=== PATIENT | male | born 1945 ===

== ENCOUNTER 2018-01-02 20:45 | Inpatient (IN) | payer MEDICARE, MEDICAID ==
[~2018-01-02 20:45] MED LIST: ETOMIDATE 20 MG INJ; MIDAZOLAM 1 MG/ML 2 ML INJ; SUCCINYLCHOLINE CHLORIDE 100 MG/5 ML SYG IV
[2018-01-02 21:05] LABS: ADD MAN DIFF? NO
[2018-01-02 21:13] LABS: WHITE BLOOD COUNT 3.1 10^3/ul (4.8-10.8)
[2018-01-02 21:13] LABS: ABNORMAL IP MESSAGE 1; BASOPHILS % 0.6 % (0.0-2.0); EOSINOPHILS % 0.3 % (0.0-7.0); HEMATOCRIT 33.9 % (42.0-52.0); HEMOGLOBIN 9.9 g/dl (14.0-18.0); LYMPHOCYTES # 1.1 10^3/ul (0.8-2.9); LYMPHOCYTES % 35.4 % (15.0-51.0); MEAN CORPUSCULAR HEMOGLOBIN 35.2 pg (29.0-33.0); MEAN CORPUSCULAR HGB CONC 29.2 g/dl (32.0-37.0); MEAN CORPUSCULAR VOLUME 120.6 fl (82.0-101.0); MEAN PLATELET VOLUME 11.4 fl (7.4-10.4); MONOCYTE # 0.3 10^3/ul (0.3-0.9); MONOCYTES % 10.4 % (0.0-11.0); NEUTROPHIL # 1.6 10^3/ul (1.6-7.5); NEUTROPHILS % 51.7 % (39.0-77.0); NUCLEATED RED BLOOD CELLS # 0.1 10^3/ul (0.0-0.0); NUCLEATED RED BLOOD CELLS% 2.6 /100WBC (0.0-0.0); PLATELET COUNT 86 10^3/UL (140-415); POSITIVE DIFF @See below; RED BLOOD COUNT 2.81 10^6/ul (4.70-6.10)
[2018-01-02 21:29] LABS: INR 1.85; PROTIME 21.8 Sec (11.9-14.9); PT RATIO 1.7
[2018-01-02 21:36] LABS: PARTIAL THROMBOPLASTIN TIME 82.6 Sec (23.0-35.0)
[2018-01-02 21:37] LABS: SALICYLATE < 1.0 mg/dl (5.0-30.0)
[2018-01-02 21:37] LABS: ACETAMINOPHEN < 10.0 ug/ml (10.0-30.0)
[2018-01-02 21:49] LABS: CREATINE KINASE 1362 IU/L (23-200)
[2018-01-02 21:51] LABS: ANION GAP 45 (5-13); BLOOD UREA NITROGEN 16 mg/dl (7-20); CALCIUM 7.7 mg/dl (8.4-10.2); CHLORIDE 89 mmol/L (97-110); GLUCOSE 192 mg/dl (70-220); POTASSIUM 4.1 mmol/L (3.5-5.1); SODIUM 139 mmol/L (135-144)
[2018-01-02 21:54] LABS: CARBON DIOXIDE 5 mmol/L (21-31)
[2018-01-02 21:57] LABS: CREATININE 1.84 mg/dl (0.61-1.24); Estimated GFR 37 mL/min (>60)
[2018-01-02 21:59] LABS: ANISOCYTOSIS 2+ (0-0); BAND NEUTROPHILS #M 0.1 10^3/ul (0.0-0.6); BAND NEUTROPHILS % (M) 4 % (0-4); ERYTHROBLAST% (NRBC) (M) 5 % (0-0); HYPOCHROMASIA 1+ (0-0); LYMPHOCYTES #M 1.3 10^3/ul (0.8-2.9); LYMPHOCYTES % (M) 42 % (15-51); MONOCYTE #M 0.1 10^3/ul (0.3-0.9); MONOCYTES % (M) 6 % (0-11); MYELOCYTES % (M) 1 % (0-0); PLATELET ESTIMATE DECREASED; POLYCHROMASIA 1+ (0-0); SEG NEUT #M 1.5 10^3/ul (1.6-7.5); SEGMENTED NEUTROPHILS (M) % 47 % (39-77); SMUDGE%M 70 % (0-0)
[2018-01-02 22:02] LABS: TROPONIN-I 0.065 ng/ml (0.000-0.120)
[2018-01-02] MEDS: MIDAZOLAM 1 MG/ML 5 ML INJ IV (22:26)
[2018-01-02] MEDS: ETOMIDATE 20 MG INJ IV (22:27)
[2018-01-02] MEDS: SODIUM CHLORIDE 0.9% 1L BAG IV* (22:27)
[2018-01-02] MEDS: SUCCINYLCHOLINE CHLORIDE 100 MG/5 ML SYG IV (22:28)
[2018-01-02] MEDS ORDERED: ACETAMINOPHEN 650 MG SUPP PR (22:30)
[2018-01-02] MEDS ORDERED: ALBUTEROL HFA 8 GM INHALER INH (22:30)
[2018-01-02] MEDS ORDERED: ONDANSETRON 4 MG INJ IV (22:30)
[2018-01-02] MEDS: MIDAZOLAM 1 MG/ML 2 ML INJ IV (22:30)
[2018-01-02] MEDS ORDERED: VANCOMYCIN IV PER PHARMACY XX (22:30)
[2018-01-02] MEDS ORDERED: IPRATROPIUM (HFA) 12.9 GM INHALER INH (22:30)
[2018-01-02 22:51] LABS: HEMOGLOBIN A1C 4.7 % (0-5.9)
[2018-01-02] MEDS: CEFTRIAXONE 1 GM/50 ML (PMX) 50 ML IVPB (22:56)
[2018-01-02 23:05] LABS: AMPHETAMINE/METHAMPHETAMINE Negative (NEGATIVE); BARBITURATES Negative (NEGATIVE); BENZODIAZEPINES Negative (NEGATIVE); CANNABINOIDS Negative (NEGATIVE); COCAINE Negative (NEGATIVE); OPIATES Negative (NEGATIVE)
[2018-01-02] MEDS: SODIUM BICARBONATE (IV ADD) 150 MEQ in DEXTROSE 5% 1,000 ML IV (23:13)
[2018-01-03] MEDS: MIDAZOLAM (DRIP) 50 mg/50 mL 50 ML IV ×2 (00:50→15:42)
[2018-01-03] MEDS: SOD CHLORIDE 0.9% 1,000 ML IV ×5 (00:50→07:04)
[2018-01-03 01:26] LABS: AADO2 Arterial 64.6 mmHg (7.0-24.0); Allen Test ACCEPTAB; Arterial Blood Gas Oxygen Sat 99.4 mmHG (95.0-98.0); Arterial COHb 0.3 % (0.0-3.0); Arterial Fraction of Oxyhgb 98.3 % (93.0-99.0); Arterial HCO3 2.1 mmol/L (22.0-26.0); Arterial MetHb 0.8 % (0.0-1.5); Arterial Total Hemglobin 10.9 g/dl (12.0-18.0); Arterial pCO2 27.2 mmhg (35-45); MODE VENT - AC; Site Right Radial
[2018-01-03 01:36] LABS: LACTIC ACID > 24.0 mmol/L (0.5-2.0)
[2018-01-03] MEDS ORDERED: NA BICARBONATE 8.4% 50 ML SYG (01:43)
[2018-01-03] MEDS ORDERED: DEXTROSE 50% 50 ML SYRINGE IV ×2 (02:00)
[2018-01-03] MEDS: VANCOMYCIN 1 GM in 250 ML IVPB (02:19)
[2018-01-03] MEDS: ACCU-CHEK XX ×22 (02:24→23:09)
[2018-01-03] MEDS: NA BICARBONATE 8.4% 50 ML SYG IV (02:24)
[2018-01-03 02:54] LABS: Allen Test ACCEPTAB; Arterial Blood Gas Oxygen Sat 99.2 mmHG (95.0-98.0); Arterial COHb 0.3 % (0.0-3.0); Arterial Fraction of Oxyhgb 98.2 % (93.0-99.0); Arterial HCO3 4.4 mmol/L (22.0-26.0); Arterial MetHb 0.7 % (0.0-1.5); Arterial Total Hemglobin 9.8 g/dl (12.0-18.0); Arterial pCO2 29.8 mmhg (35-45); MODE VENT - AC; Site Right Radial
[2018-01-03] MEDS: INSULIN HUMAN REGULAR 100 UNIT in SOD CHLORIDE 0.9% 99 ML IV ×4 (03:14→19:34)
[2018-01-03] MEDS ORDERED: PHENYLephrine 20MG IN 250 ML 250 ML (03:24)
[2018-01-03] MEDS: PHENYLephrine 20MG IN 250 ML 250 ML IV (03:28)
[2018-01-03] MEDS: DIGOXIN 500 MCG INJ IV (04:24)
[2018-01-03] MEDS ORDERED: SODIUM BICARBONATE IV (05:00)
[2018-01-03] MEDS ORDERED: DEXTROSE 5% IV (05:00)
[2018-01-03] MEDS: SODIUM BICARBONATE (IV ADD) 150 MEQ in DEXTROSE 5% 1,000 ML IV ×2 (05:08→10:46)
[2018-01-03 05:09] LABS: ABNORMAL IP MESSAGE 1; HEMATOCRIT 30.1 % (42.0-52.0); HEMOGLOBIN 9.2 g/dl (14.0-18.0); MEAN CORPUSCULAR HEMOGLOBIN 34.8 pg (29.0-33.0); MEAN CORPUSCULAR HGB CONC 30.6 g/dl (32.0-37.0); NUCLEATED RED BLOOD CELLS% 2.9 /100WBC (0.0-0.0); PLATELET COUNT 71 10^3/UL (140-415); POSITIVE DIFF @See below; RED BLOOD COUNT 2.64 10^6/ul (4.70-6.10); RED CELL DISTRIBUTION WIDTH 16.1 % (11.5-14.5)
[2018-01-03 05:09] LABS: WHITE BLOOD COUNT 5.5 10^3/ul (4.8-10.8)
[2018-01-03 05:25] LABS: INR 3.02; PROTIME 32.2 Sec (11.9-14.9); PT RATIO 2.5
[2018-01-03 05:31] LABS: BLOOD UREA NITROGEN 16 mg/dl (7-20); CHLORIDE 95 mmol/L (97-110); GLUCOSE 287 mg/dl (70-220); POTASSIUM 5.3 mmol/L (3.5-5.1); SODIUM 142 mmol/L (135-144)
[2018-01-03 05:33] LABS: ADD MAN DIFF? YES
[2018-01-03 05:37] LABS: PARTIAL THROMBOPLASTIN TIME 109.1 Sec (23.0-35.0)
[2018-01-03 05:42] LABS: Estimated GFR 40 mL/min (>60)
[2018-01-03] MEDS: PHENYLephrine 40 MG in SOD CHLORIDE 0.9% 496 ML IV ×4 (05:50→19:35)
[2018-01-03] MEDS ORDERED: PANTOPRAZOLE 40 MG INJ IV (06:00)
[2018-01-03] MEDS: NORepinephrine 8MG/250 ML (PMX 250 ML IV ×2 (06:04)
[2018-01-03 06:15] LABS: ANION GAP 42 (5-13)
[2018-01-03 06:17] LABS: CALCIUM 5.5 mg/dl (8.4-10.2); CARBON DIOXIDE < 5 mmol/L (21-31)
[2018-01-03 06:22] LABS: LACTIC ACID > 24.0 mmol/L (0.5-2.0)
[2018-01-03] MEDS ORDERED: DOPamine-D5W 1.6 MG/ML 250 ML IV (07:00)
[2018-01-03 07:18] LABS: DIGOXIN 3.5 ng/ml (1.0-2.0)
[2018-01-03 07:19] LABS: ANISOCYTOSIS 2+ (0-0); BAND NEUTROPHILS #M 1.8 10^3/ul (0.0-0.6); BAND NEUTROPHILS % (M) 34 % (0-4); ERYTHROBLAST% (NRBC) (M) 3 % (0-0); GIANT THROMBO% (M) 2 % (0-0); LYMPHOCYTES #M 0.4 10^3/ul (0.8-2.9); LYMPHOCYTES % (M) 9 % (15-51); PLATELET ESTIMATE DECREASED; POIKILOCYTOSIS 1+ (0-0); POLYCHROMASIA 1+ (0-0); REACTIVE LYMPHOCYTES #M 0.1 10^3/ul (0.0-0.0); REACTIVE LYMPHOCYTES% (M) 3 % (0-0); SEG NEUT #M 3.1 10^3/ul (1.6-7.5); SEGMENTED NEUTROPHILS (M) % 54 % (39-77); SMUDGE%M 24 % (0-0)
[2018-01-03 07:26] LABS: TROPONIN-I 0.279 ng/ml (0.000-0.120)
[2018-01-03] MEDS: VASOPRESSIN 60 UNIT in DEXTROSE 5% 57 ML IV ×2 (07:48→18:40)
[2018-01-03] MEDS: HYDROCORTISONE 100 MG INJ IV ×2 (07:49→14:00)
[2018-01-03 07:52] LABS: AADO2 Arterial 309.4 mmHg (7.0-24.0); Allen Test ACCEPTAB; Arterial Base Excess -13.7 mmol/L (-3.0-3); Arterial Blood Gas Oxygen Sat 95.8 mmHG (95.0-98.0); Arterial COHb 0.3 % (0.0-3.0); Arterial HCO3 12.3 mmol/L (22.0-26.0); Arterial MetHb 0.5 % (0.0-1.5); Arterial Total Hemglobin 9.4 g/dl (12.0-18.0); Arterial pCO2 28.9 mmhg (35-45); MODE VENT - AC; Site Right Radial
[2018-01-03] MEDS ORDERED: PHENYLephrine 40 MG in SOD CHLORIDE 0.9% 496 ML IV (08:00)
[2018-01-03 08:27] LABS: CK INDEX 0.9; CREATINE KINASE 5128 IU/L (23-200)
[2018-01-03] MEDS: CEFEPIME 1GM/50 ML (PMX) 50 ML IVPB (09:12)
[2018-01-03] MEDS: PHYTONADIONE 10 MG in DEXTROSE 5% 50 ML IVPB (09:12)
[2018-01-03] MEDS: MULTIVITAMINS 10 ML, THIAMINE 100 MG, FOLIC ACID 1 MG in SOD CHLORIDE 0.9% 1,000 ML IVPB (09:13)
[2018-01-03 09:52] LABS: IMMEDIATE SPIN CROSSMATCH 1 1
[2018-01-03 10:21] LABS: OCCULT BLOOD STOOL POSITIVE (NEGATIVE)
[2018-01-03 12:32] LABS: Allen Test ACCEPTAB; Arterial Base Excess -11.6 mmol/L (-3.0-3); Arterial Blood Gas Oxygen Sat 95.1 mmHG (95.0-98.0); Arterial COHb 0.3 % (0.0-3.0); Arterial Fraction of Oxyhgb 94.2 % (93.0-99.0); Arterial HCO3 13.8 mmol/L (22.0-26.0); Arterial MetHb 0.6 % (0.0-1.5); Arterial Total Hemglobin 8.5 g/dl (12.0-18.0); Arterial pCO2 29.6 mmhg (35-45); MODE VENT - AC; Site Right Radial
[2018-01-03] MEDS ORDERED: DIGOXIN 500 MCG INJ IV (13:00)
[2018-01-03 13:22] LABS: WHITE BLOOD COUNT 2.9 10^3/ul (4.8-10.8)
[2018-01-03 13:22] LABS: ABNORMAL IP MESSAGE 1; HEMATOCRIT 23.2 % (42.0-52.0); HEMOGLOBIN 7.6 g/dl (14.0-18.0); MEAN CORPUSCULAR HEMOGLOBIN 35.5 pg (29.0-33.0); MEAN CORPUSCULAR HGB CONC 32.8 g/dl (32.0-37.0); MEAN CORPUSCULAR VOLUME 108.4 fl (82.0-101.0); MEAN PLATELET VOLUME 10.5 fl (7.4-10.4); NUCLEATED RED BLOOD CELLS% 5.2 /100WBC (0.0-0.0); PLATELET COUNT 40 10^3/UL (140-415); POSITIVE DIFF @See below; RED BLOOD COUNT 2.14 10^6/ul (4.70-6.10); RED CELL DISTRIBUTION WIDTH 15.8 % (11.5-14.5)
[2018-01-03 13:28] LABS: ADD MAN DIFF? YES
[2018-01-03] MEDS: FENTAnyl (DRIP) 1000 mcg/100mL 100 ML IV (13:34)
[2018-01-03 14:46] LABS: LACTIC ACID 23.9 mmol/L (0.5-2.0)
[2018-01-03 14:47] LABS: ANISOCYTOSIS 1+ (0-0); BAND NEUTROPHILS #M 0.2 10^3/ul (0.0-0.6); BAND NEUTROPHILS % (M) 9 % (0-4); ERYTHROBLAST% (NRBC) (M) 13 % (0-0); GIANT THROMBO% (M) 6 % (0-0); LYMPHOCYTES #M 0.1 10^3/ul (0.8-2.9); LYMPHOCYTES % (M) 5 % (15-51); METAMYELOCYTES %M 1 % (0-0); MONOCYTES % (M) 2 % (0-11); PLATELET ESTIMATE SIG DECREASED; REACTIVE LYMPHOCYTES% (M) 1 % (0-0); SEG NEUT #M 2.4 10^3/ul (1.6-7.5); SEGMENTED NEUTROPHILS (M) % 82 % (39-77); SMUDGE%M 43 % (0-0); STOMATOCYTES 1+ (0-0); TARGET CELLS 1+ (0-0); TROPONIN-I 0.612 ng/ml (0.000-0.120)
[2018-01-03 14:49] LABS: ALANINE AMINOTRANSFERASE 264 IU/L (13-69); ALBUMIN/GLOBULIN RATIO 1.05; ALKALINE PHOSPHATASE 69 IU/L (42-121); ANION GAP 26 (5-13); BILIRUBIN,INDIRECT 0.7 mg/dl (0-1.1); BILIRUBIN,TOTAL 2.5 mg/dl (0.2-1.3); BLOOD UREA NITROGEN 19 mg/dl (7-20); CARBON DIOXIDE 14 mmol/L (21-31); CHLORIDE 99 mmol/L (97-110); CREATININE 2.02 mg/dl (0.61-1.24); Estimated GFR 33 mL/min (>60); GLUCOSE 382 mg/dl (70-220); SODIUM 139 mmol/L (135-144); TOTAL PROTEIN 3.9 g/dl (6.1-8.1)
[2018-01-03 14:55] LABS: POTASSIUM 2.6 mmol/L (3.5-5.1)
[2018-01-03 14:56] LABS: CALCIUM 4.8 mg/dl (8.4-10.2)
[2018-01-03] MEDS: POTASSIUM CHLORIDE 50 ML IVPB ×7 (15:00→23:03)
[2018-01-03 15:49] LABS: ASPARTATE AMINO TRANSFERASE 2507 IU/L (15-46)
[2018-01-03 16:23] LABS: CK INDEX 0.9; CREATINE KINASE 5959 IU/L (23-200)
[2018-01-03] MEDS: SODIUM BICARBONATE (IV ADD) 150 MEQ in SOD CHLORIDE 0.45% 1,000 ML IV (16:24)
[2018-01-03] MEDS: [UNRECOGNIZED DRUG - REMARK] XX (17:45)
[2018-01-03] MEDS: PANTOPRAZOLE 40 MG INJ IV (18:38)
[2018-01-03 19:02] LABS: HEMOGLOBIN 7.7 g/dl (14.0-18.0)
[2018-01-03 19:50] LABS: ANION GAP 27 (5-13); BLOOD UREA NITROGEN 21 mg/dl (7-20); CARBON DIOXIDE 16 mmol/L (21-31); CHLORIDE 97 mmol/L (97-110); Estimated GFR 35 mL/min (>60); GLUCOSE 306 mg/dl (70-220); SODIUM 140 mmol/L (135-144)
[2018-01-03] MEDS ORDERED: VANCOMYCIN IV PER PHARMACY XX (20:00)
[2018-01-03 20:11] LABS: CALCIUM 4.9 mg/dl (8.4-10.2); POTASSIUM 2.7 mmol/L (3.5-5.1)
[2018-01-03] MEDS: POTASSIUM CHLORIDE 100 ML IVPB (20:35)
[2018-01-03] MEDS ORDERED: MAGNESIUM SULFATE 6 GM in DEXTROSE 5% 100 ML IVPB (23:00)
[2018-01-04] MEDS: ACCU-CHEK XX ×24 (00:27→22:30)
[2018-01-04 00:49] LABS: HEMATOCRIT 24.7 % (42.0-52.0); HEMOGLOBIN 8.2 g/dl (14.0-18.0)
[2018-01-04] MEDS: SODIUM BICARBONATE (IV ADD) 150 MEQ in SOD CHLORIDE 0.45% 1,000 ML IV ×2 (00:53→07:59)
[2018-01-04] MEDS: CALCIUM GLUCONATE 10% 2 GM in DEXTROSE 5% 100 ML IVPB (00:53)
[2018-01-04] MEDS: MIDAZOLAM (DRIP) 50 mg/50 mL 50 ML IV ×2 (01:03→13:51)
[2018-01-04] MEDS: VANCOMYCIN 500MG/NS (PMX) 100 ML IVPB (01:48)
[2018-01-04 02:04] LABS: ADD UMIC YES; UR ASCORBIC ACID NEGATIVE (NEGATIVE); UR BACTERIA FEW /HPF (NONE SEEN); UR BILIRUBIN (Dip) NEGATIVE (NEGATIVE); UR BLOOD (Dip) 3+ mg/dL (NEGATIVE); UR CLARITY CLOUDY (CLEAR); UR COLOR AMBER (YELLOW); UR GLUCOSE (Dip) 3+ mg/dL (NEGATIVE); UR KETONES (Dip) TRACE mg/dL (NEGATIVE); UR LEUKOCYTE ESTERASE (Dip) NEGATIVE Leu/ul (NEGATIVE); UR NITRITE (Dip) NEGATIVE (NEGATIVE); UR RBC 0 /HPF (0-5); UR SPECIFIC GRAVITY (Dip) 1.016 (1.003-1.030); UR TOTAL PROTEIN (Dip) 3+ mg/dl (NEGATIVE); UR UROBILINOGEN (Dip) NEGATIVE (NEGATIVE); UR WBC 1 /HPF (0-5)
[2018-01-04] MEDS: MAG SULFATE 2GM IN 50 ML IVPB ×3 (02:55→05:52)
[2018-01-04] MEDS: VASOPRESSIN 60 UNIT in DEXTROSE 5% 57 ML IV ×2 (02:57→18:05)
[2018-01-04] MEDS ORDERED: VANCOMYCIN 500MG/NS (PMX) 100 ML IVPB (03:00)
[2018-01-04] MEDS: FENTAnyl (DRIP) 1000 mcg/100mL 100 ML IV (03:18)
[2018-01-04 03:55] LABS: ANION GAP 20 (5-13); BLOOD UREA NITROGEN 22 mg/dl (7-20); CARBON DIOXIDE 22 mmol/L (21-31); CHLORIDE 101 mmol/L (97-110); CREATININE 2.41 mg/dl (0.61-1.24); Estimated GFR 27 mL/min (>60); GLUCOSE 98 mg/dl (70-220); POTASSIUM 3.1 mmol/L (3.5-5.1); SODIUM 143 mmol/L (135-144)
[2018-01-04 04:07] LABS: CALCIUM 5.2 mg/dl (8.4-10.2)
[2018-01-04 04:08] LABS: MAGNESIUM 0.9 mg/dl (1.7-2.5)
[2018-01-04] MEDS: PANTOPRAZOLE 40 MG INJ IV ×2 (05:05→18:05)
[2018-01-04 05:30] LABS: WHITE BLOOD COUNT 11.7 10^3/ul (4.8-10.8)
[2018-01-04 05:30] LABS: ABNORMAL IP MESSAGE 1; HEMATOCRIT 22.2 % (42.0-52.0); HEMOGLOBIN 7.9 g/dl (14.0-18.0); MEAN CORPUSCULAR HEMOGLOBIN 36.1 pg (29.0-33.0); MEAN CORPUSCULAR HGB CONC 35.6 g/dl (32.0-37.0); MEAN CORPUSCULAR VOLUME 101.4 fl (82.0-101.0); MEAN PLATELET VOLUME 11.7 fl (7.4-10.4); NUCLEATED RED BLOOD CELLS% 3.2 /100WBC (0.0-0.0); PLATELET COUNT 45 10^3/UL (140-415); POSITIVE DIFF @See below; RED BLOOD COUNT 2.19 10^6/ul (4.70-6.10); RED CELL DISTRIBUTION WIDTH 15.7 % (11.5-14.5)
[2018-01-04 05:31] LABS: ADD MAN DIFF? YES
[2018-01-04 05:47] LABS: INR 2.18; PROTIME 24.8 Sec (11.9-14.9); PT RATIO 1.9
[2018-01-04] MEDS: INSULIN HUMAN REGULAR 100 UNIT in SOD CHLORIDE 0.9% 99 ML IV (05:56)
[2018-01-04 05:59] LABS: ALANINE AMINOTRANSFERASE 291 IU/L (13-69); ALKALINE PHOSPHATASE 66 IU/L (42-121); BILIRUBIN,INDIRECT 1.3 mg/dl (0-1.1)
[2018-01-04 06:00] LABS: SODIUM,URINE RANDOM 87 mmol/L (30-90)
[2018-01-04 06:00] LABS: CREATININE,URINE RANDOM 62.89 mg/dl (20-370)
[2018-01-04 06:03] LABS: ANION GAP 18 (5-13); BLOOD UREA NITROGEN 22 mg/dl (7-20); CARBON DIOXIDE 24 mmol/L (21-31); CHLORIDE 100 mmol/L (97-110); CREATININE 2.53 mg/dl (0.61-1.24); Estimated GFR 25 mL/min (>60); GLUCOSE 84 mg/dl (70-220); MAGNESIUM 1.4 mg/dl (1.7-2.5); PHOSPHORUS 1.3 mg/dl (2.5-4.9); POTASSIUM 3.2 mmol/L (3.5-5.1); SODIUM 142 mmol/L (135-144)
[2018-01-04 06:07] LABS: CALCIUM 5.4 mg/dl (8.4-10.2)
[2018-01-04 06:08] LABS: LACTIC ACID 15.7 mmol/L (0.5-2.0)
[2018-01-04] MEDS: POTASSIUM CHLORIDE 50 ML IVPB ×3 (06:29→09:08)
[2018-01-04 07:11] LABS: ASPARTATE AMINO TRANSFERASE 2437 IU/L (15-46)
[2018-01-04 07:50] LABS: HEPATITIS B SURFACE ANTIGEN NEGATIVE (NEGATIVE)
[2018-01-04 07:56] LABS: ANISOCYTOSIS 2+ (0-0); BAND NEUTROPHILS #M 2.1 10^3/ul (0.0-0.6); BAND NEUTROPHILS % (M) 18 % (0-4); ERYTHROBLAST% (NRBC) (M) 16 % (0-0); GIANT THROMBO% (M) 6 % (0-0); LYMPHOCYTES #M 1.4 10^3/ul (0.8-2.9); LYMPHOCYTES % (M) 12 % (15-51); METAMYELOCYTES #M 0.3 10^3/ul (0.0-0.0); METAMYELOCYTES %M 3 % (0-0); MONOCYTE #M 0.4 10^3/ul (0.3-0.9); MONOCYTES % (M) 4 % (0-11); MYELOCYTES #M 0.1 10^3/ul (0.0-0.0); MYELOCYTES % (M) 1 % (0-0); PLATELET ESTIMATE DECREASED; SEG NEUT #M 7.6 10^3/ul (1.6-7.5); SEGMENTED NEUTROPHILS (M) % 63 % (39-77); SMUDGE%M 12 % (0-0)
[2018-01-04 07:58] LABS: IONIZED CALCIUM 0.7 mmol/L (1.1-1.4)
[2018-01-04] MEDS: MULTIVITAMINS 10 ML, THIAMINE 100 MG, FOLIC ACID 1 MG in SOD CHLORIDE 0.9% 1,000 ML IVPB (08:00)
[2018-01-04] MEDS: CEFEPIME 1GM/50 ML (PMX) 50 ML IVPB (08:00)
[2018-01-04] MEDS: FUROSEMIDE 40 MG INJ IV (08:01)
[2018-01-04 08:06] LABS: HEPATITIS B SURFACE ANTIBODY INDETERMINATE (NEGATIVE)
[2018-01-04 08:07] LABS: HEPATITIS C VIRAL ANTIBODY NEGATIVE (NEGATIVE)
[2018-01-04 09:43] LABS: AADO2 Arterial 201.9 mmHg (7.0-24.0); Allen Test ACCEPTAB; Arterial Base Excess 6.2 mmol/L (-3.0-3); Arterial Blood Gas Oxygen Sat 88.3 mmHG (95.0-98.0); Arterial COHb 0.3 % (0.0-3.0); Arterial Fraction of Oxyhgb 87.6 % (93.0-99.0); Arterial MetHb 0.5 % (0.0-1.5); Arterial Total Hemglobin 8.5 g/dl (12.0-18.0); Arterial pCO2 34.5 mmhg (35-45); MODE VENT - AC; Site Right Radial
[2018-01-04] MEDS: HYDROCORTISONE 25 MG SUPP PR (09:57)
[2018-01-04] MEDS: MAGNESIUM SULFATE 1 GM/D5W 100 ML IVPB (10:33)
[2018-01-04] MEDS: POTASSIUM PHOSPHATE 20 MEQ in SOD CHLORIDE 0.9% 250 ML IVPB (11:46)
[2018-01-04 12:40] LABS: IMMEDIATE SPIN CROSSMATCH 1
[2018-01-04 12:50] LABS: HEMATOCRIT 21.8 % (42.0-52.0); HEMOGLOBIN 7.8 g/dl (14.0-18.0)
[2018-01-04 15:25] LABS: ANION GAP 11 (5-13); BLOOD UREA NITROGEN 25 mg/dl (7-20); CARBON DIOXIDE 32 mmol/L (21-31); CHLORIDE 97 mmol/L (97-110); CREATININE 2.62 mg/dl (0.61-1.24); Estimated GFR 24 mL/min (>60); GLUCOSE 118 mg/dl (70-220); POTASSIUM 4.3 mmol/L (3.5-5.1); SODIUM 140 mmol/L (135-144)
[2018-01-04] MEDS: [UNRECOGNIZED DRUG - REMARK] XX (17:41)
[2018-01-04 19:30] LABS: HEMATOCRIT 26.5 % (42.0-52.0); HEMOGLOBIN 9.5 g/dl (14.0-18.0)
[2018-01-05] MEDS: ACCU-CHEK XX ×24 (00:09→22:25)
[2018-01-05 00:45] LABS: HEMATOCRIT 25.9 % (42.0-52.0); HEMOGLOBIN 9.1 g/dl (14.0-18.0)
[2018-01-05 01:13] LABS: ANION GAP 10 (5-13); BLOOD UREA NITROGEN 27 mg/dl (7-20); CARBON DIOXIDE 34 mmol/L (21-31); CHLORIDE 95 mmol/L (97-110); CREATININE 3.19 mg/dl (0.61-1.24); Estimated GFR 19 mL/min (>60); GLUCOSE 142 mg/dl (70-220); MAGNESIUM 2.7 mg/dl (1.7-2.5); PHOSPHORUS 3.9 mg/dl (2.5-4.9); POTASSIUM 5.4 mmol/L (3.5-5.1); SODIUM 139 mmol/L (135-144)
[2018-01-05 01:17] LABS: CALCIUM 4.7 mg/dl (8.4-10.2)
[2018-01-05 01:18] LABS: LACTIC ACID 7.5 mmol/L (0.5-2.0)
[2018-01-05 01:44] LABS: DIGOXIN 0.6 ng/ml (1.0-2.0)
[2018-01-05] MEDS ORDERED: DOPamine-D5W 1.6 MG/ML 250 ML IV (01:45)
[2018-01-05] MEDS: CALCIUM GLUCONATE 10% 2 GM in DEXTROSE 5% 100 ML IVPB (02:22)
[2018-01-05] MEDS: VASOPRESSIN 60 UNIT in DEXTROSE 5% 57 ML IV ×2 (04:48→19:00)
[2018-01-05 04:56] LABS: ABNORMAL IP MESSAGE 1; HEMATOCRIT 25.7 % (42.0-52.0); HEMOGLOBIN 8.8 g/dl (14.0-18.0); MEAN CORPUSCULAR HEMOGLOBIN 32.7 pg (29.0-33.0); MEAN CORPUSCULAR HGB CONC 34.2 g/dl (32.0-37.0); MEAN CORPUSCULAR VOLUME 95.5 fl (82.0-101.0); MEAN PLATELET VOLUME 13.3 fl (7.4-10.4); NUCLEATED RED BLOOD CELLS% 2.1 /100WBC (0.0-0.0); POSITIVE DIFF @See below; RED BLOOD COUNT 2.69 10^6/ul (4.70-6.10); RED CELL DISTRIBUTION WIDTH 18.4 % (11.5-14.5)
[2018-01-05 04:56] LABS: WHITE BLOOD COUNT 15.6 10^3/ul (4.8-10.8)
[2018-01-05 05:02] LABS: ADD MAN DIFF? YES; PLATELET COUNT 17 10^3/UL (140-415)
[2018-01-05 05:14] LABS: INR 2.64; PROTIME 28.9 Sec (11.9-14.9); PT RATIO 2.3
[2018-01-05 05:21] LABS: ANION GAP 10 (5-13); BLOOD UREA NITROGEN 30 mg/dl (7-20); CARBON DIOXIDE 33 mmol/L (21-31); CHLORIDE 97 mmol/L (97-110); GLUCOSE 124 mg/dl (70-220); MAGNESIUM 2.6 mg/dl (1.7-2.5); PHOSPHORUS 4.6 mg/dl (2.5-4.9); POTASSIUM 5.5 mmol/L (3.5-5.1); SODIUM 140 mmol/L (135-144)
[2018-01-05 05:22] LABS: PARTIAL THROMBOPLASTIN TIME 86.5 Sec (23.0-35.0)
[2018-01-05 05:22] LABS: LACTIC ACID 7.3 mmol/L (0.5-2.0)
[2018-01-05 05:27] LABS: Estimated GFR 18 mL/min (>60)
[2018-01-05 05:43] LABS: CALCIUM 5.1 mg/dl (8.4-10.2); CREATININE 3.41 mg/dl (0.61-1.24)
[2018-01-05] MEDS: INSULIN HUMAN REGULAR 100 UNIT in SOD CHLORIDE 0.9% 99 ML IV (06:02)
[2018-01-05] MEDS: FENTAnyl (DRIP) 1000 mcg/100mL 100 ML IV (06:02)
[2018-01-05] MEDS: PANTOPRAZOLE 40 MG INJ IV ×2 (06:02→19:33)
[2018-01-05 08:00] LABS: ANISOCYTOSIS 2+ (0-0); BAND NEUTROPHILS #M 6.2 10^3/ul (0.0-0.6); BAND NEUTROPHILS % (M) 40 % (0-4); BURR CELLS 1+ (0-0); ERYTHROBLAST% (NRBC) (M) 1 % (0-0); GIANT THROMBO% (M) 1 % (0-0); LYMPHOCYTES #M 1.5 10^3/ul (0.8-2.9); LYMPHOCYTES % (M) 10 % (15-51); METAMYELOCYTES #M 1.2 10^3/ul (0.0-0.0); METAMYELOCYTES %M 8 % (0-0); MONOCYTE #M 0.4 10^3/ul (0.3-0.9); MONOCYTES % (M) 3 % (0-11); MYELOCYTES #M 0.6 10^3/ul (0.0-0.0); MYELOCYTES % (M) 4 % (0-0); PLATELET ESTIMATE SIG DECREASED; POIKILOCYTOSIS 1+ (0-0); POLYCHROMASIA 1+ (0-0); SEG NEUT #M 6.4 10^3/ul (1.6-7.5); SEGMENTED NEUTROPHILS (M) % 35 % (39-77); SMUDGE%M 24 % (0-0); TARGET CELLS 2+ (0-0); TOXIC GRANULATION 1+ (0-0)
[2018-01-05] MEDS: CEFEPIME 1GM/50 ML (PMX) 50 ML IVPB (08:58)
[2018-01-05] MEDS: MULTIVITAMINS 10 ML, THIAMINE 100 MG, FOLIC ACID 1 MG in SOD CHLORIDE 0.9% 1,000 ML IVPB (08:58)
[2018-01-05 12:23] LABS: HEMATOCRIT 24.2 % (42.0-52.0); HEMOGLOBIN 8.5 g/dl (14.0-18.0)
[2018-01-05 13:02] LABS: LACTIC ACID 6.6 mmol/L (0.5-2.0)
[2018-01-05] MEDS ORDERED: METOPROLOL 5 MG INJ IV (16:00)
[2018-01-05] MEDS: ALBUMIN HUMAN 25% 100 ML IV (17:33)
[2018-01-05] MEDS: [UNRECOGNIZED DRUG - REMARK] XX (17:46)
[2018-01-05] MEDS: HEPARIN 1000 UNITS/ML 10 ML INJ CATHETER (18:52)
[2018-01-05 19:49] LABS: HEMATOCRIT 22.9 % (42.0-52.0)
[2018-01-05 20:10] LABS: LACTIC ACID 3.7 mmol/L (0.5-2.0)
[2018-01-06] MEDS: VASOPRESSIN 60 UNIT in DEXTROSE 5% 57 ML IV ×2 (00:05→19:00)
[2018-01-06] MEDS: ACCU-CHEK XX ×9 (00:05→07:56)
[2018-01-06 05:22] LABS: ABNORMAL IP MESSAGE 1; HEMATOCRIT 20.6 % (42.0-52.0); MEAN CORPUSCULAR HEMOGLOBIN 33.5 pg (29.0-33.0); MEAN CORPUSCULAR VOLUME 98.6 fl (82.0-101.0); MEAN PLATELET VOLUME 14.3 fl (7.4-10.4); NUCLEATED RED BLOOD CELLS% 4.2 /100WBC (0.0-0.0); POSITIVE DIFF @See below; RED BLOOD COUNT 2.09 10^6/ul (4.70-6.10); RED CELL DISTRIBUTION WIDTH 19.6 % (11.5-14.5)
[2018-01-06] MEDS: PANTOPRAZOLE 40 MG INJ IV ×2 (05:54→17:49)
[2018-01-06] MEDS: INSULIN HUMAN REGULAR 100 UNIT in SOD CHLORIDE 0.9% 99 ML IV (05:56)
[2018-01-06 06:09] LABS: ANION GAP 10 (5-13); BLOOD UREA NITROGEN 24 mg/dl (7-20); CALCIUM 6.3 mg/dl (8.4-10.2); CARBON DIOXIDE 33 mmol/L (21-31); CHLORIDE 97 mmol/L (97-110); CREATININE 2.89 mg/dl (0.61-1.24); Estimated GFR 22 mL/min (>60); GLUCOSE 101 mg/dl (70-220); MAGNESIUM 2.2 mg/dl (1.7-2.5); PHOSPHORUS 2.7 mg/dl (2.5-4.9); POTASSIUM 3.8 mmol/L (3.5-5.1); SODIUM 140 mmol/L (135-144)
[2018-01-06 06:38] LABS: ADD MAN DIFF? YES; PLATELET COUNT 10 10^3/UL (140-415)
[2018-01-06 07:42] LABS: ANISOCYTOSIS 3+ (0-0); BAND NEUTROPHILS #M 0.1 10^3/ul (0.0-0.6); BAND NEUTROPHILS % (M) 3 % (0-4); BASOPHILS % (M) 1 % (0-2); EOSINOPHILS % (M) 1 % (0-7); ERYTHROBLAST% (NRBC) (M) 9 % (0-0); LYMPHOCYTES #M 0.9 10^3/ul (0.8-2.9); LYMPHOCYTES % (M) 18 % (15-51); MONOCYTE #M 0.3 10^3/ul (0.3-0.9); MONOCYTES % (M) 7 % (0-11); PLATELET ESTIMATE SIG DECREASED; POIKILOCYTOSIS 1+ (0-0); POLYCHROMASIA 1+ (0-0); SEG NEUT #M 3.5 10^3/ul (1.6-7.5); SEGMENTED NEUTROPHILS (M) % 70 % (39-77); SMUDGE%M 14 % (0-0); TARGET CELLS 1+ (0-0)
[2018-01-06] MEDS: CEFEPIME 1GM/50 ML (PMX) 50 ML IVPB (08:01)
[2018-01-06 08:03] LABS: CREATINE KINASE 7442 IU/L (23-200)
[2018-01-06 09:30] LABS: VANCOMYCIN,RANDOM 10.8 ug/ml
[2018-01-06] MEDS ORDERED: PHYTONADIONE (0.5 MG/ML) IV SYG (NICU) IV* (10:00)
[2018-01-06 10:26] LABS: MITOCHONDRIAL TB NEGATIVE (NEGATIVE); SMOOTH MUSCLE AB SCREEN NEGATIVE (NEGATIVE)
[2018-01-06] MEDS ORDERED: DEXTROSE 50% 50 ML SYRINGE IV (10:30)
[2018-01-06] MEDS ORDERED: GLUCOSE GEL 15 GRAM TUBE PO ×2 (10:30)
[2018-01-06] MEDS ORDERED: GLUCOSE GEL 15 GRAM TUBE BUCCAL (10:30)
[2018-01-06] MEDS ORDERED: GLUCAGON 1 MG INJ IM (10:30)
[2018-01-06] MEDS: VANCOMYCIN 1 GM 250 ML IVPB (10:39)
[2018-01-06] MEDS ORDERED: VANCOMYCIN 1 GM 250 ML IVPB (11:00)
[2018-01-06] MEDS: INSULIN GLARGINE [LANTus] (100 UNITS/ML) SYG SC ×2 (11:42→21:26)
[2018-01-06] MEDS: CALCIUM GLUCONATE 10% 2 GM in DEXTROSE 5% 100 ML IVPB (11:59)
[2018-01-06] MEDS: SOD CHLORIDE 0.9% SC (12:00)
[2018-01-06] MEDS: PHYTONADIONE SC (12:00)
[2018-01-06 12:41] LABS: RETICULOCYTE RBC 1.86
[2018-01-06 12:41] LABS: RETICULOCYTE COUNT # 0.024 X10^6 (0.020-0.110); RETICULOCYTE COUNT % 1.3 % (0.5-1.5)
[2018-01-06 12:46] LABS: ANA SCREEN NEGATIVE (NEGATIVE)
[2018-01-06 12:56] LABS: PLATELET COUNT 9 10^3/UL (140-415)
[2018-01-06 13:08] LABS: LACTATE DEHYDROGENASE 2671 IU/L (313-618)
[2018-01-06 13:25] LABS: INR 1.45; PT RATIO 1.4; THROMBIN TIME 19.7 SEC (13.8-19.1)
[2018-01-06 13:26] LABS: PARTIAL THROMBOPLASTIN TIME 53.8 Sec (23.0-35.0)
[2018-01-06] MEDS: PHYTONADIONE IV (13:50)
[2018-01-06] MEDS: SOD CHLORIDE 0.9% IV (13:50)
[2018-01-06 14:01] LABS: FIBRIN SPLIT PRODUCT >80 and <160 ug/ml (<10)
[2018-01-06 14:13] LABS: D-DIMER > 10000.00 ng/ml (<460); FOLATE > 20.0 ng/ml (2.8-20.0)
[2018-01-06 14:14] LABS: PROTIME 17.9 Sec (11.9-14.9)
[2018-01-06] MEDS: ALBUMIN HUMAN 25% 100 ML IV (14:18)
[2018-01-06] MEDS: metroNIDAZOLE 500 MG/NS (PMX) 100 ML IVPB (14:53)
[2018-01-06] MEDS: CEFTRIAXONE 1 GM/50 ML (PMX) 50 ML IVPB (15:50)
[2018-01-06 16:10] LABS: IMMEDIATE SPIN CROSSMATCH 1 3
[2018-01-06] MEDS: HEPARIN 1000 UNITS/ML 10 ML INJ CATHETER (17:00)
[2018-01-06] MEDS: SOD CHLORIDE 0.9% 250 ML IV* ×2 (17:30→18:30)
[2018-01-06] MEDS: PYRIDOXINE 50 MG TAB NGT (17:48)
[2018-01-06] MEDS: LACTOBACILLUS RHAMNOSUS CAP PO ×2 (17:48→21:06)
[2018-01-06] MEDS: [UNRECOGNIZED DRUG - REMARK] XX (17:49)
[2018-01-06 19:57] LABS: ADD MAN DIFF? NO
[2018-01-06 20:00] LABS: WHITE BLOOD COUNT 6.5 10^3/ul (4.8-10.8)
[2018-01-06 20:00] LABS: ABNORMAL IP MESSAGE 1; HEMATOCRIT 15.7 % (42.0-52.0); MEAN CORPUSCULAR HEMOGLOBIN 33.3 pg (29.0-33.0); MEAN CORPUSCULAR HGB CONC 33.8 g/dl (32.0-37.0); MEAN CORPUSCULAR VOLUME 98.7 fl (82.0-101.0); MEAN PLATELET VOLUME 10.4 fl (7.4-10.4); NUCLEATED RED BLOOD CELLS% 11.1 /100WBC (0.0-0.0); PLATELET COUNT 33 10^3/UL (140-415); POSITIVE DIFF @See below; RED BLOOD COUNT 1.59 10^6/ul (4.70-6.10); RED CELL DISTRIBUTION WIDTH 19.7 % (11.5-14.5)
[2018-01-06 20:03] LABS: HEMOGLOBIN 5.3 g/dl (14.0-18.0)
[2018-01-06 21:06] LABS: ANISOCYTOSIS 3+ (0-0); BAND NEUTROPHILS #M 0.3 10^3/ul (0.0-0.6); BAND NEUTROPHILS % (M) 5 % (0-4); BASOPHIL #M 0.4 10^3/ul (0.0-0.0); BASOPHILS % (M) 7 % (0-2); EOSINOPHILS % (M) 2 % (0-7); ERYTHROBLAST% (NRBC) (M) 8 % (0-0); GIANT THROMBO% (M) 7 % (0-0); LYMPHOCYTES #M 2.4 10^3/ul (0.8-2.9); LYMPHOCYTES % (M) 37 % (15-51); METAMYELOCYTES #M 0.5 10^3/ul (0.0-0.0); METAMYELOCYTES %M 8 % (0-0); MICROCYTOSIS 3+ (0-0); MONOCYTE #M 0.1 10^3/ul (0.3-0.9); MONOCYTES % (M) 3 % (0-11); MYELOCYTES #M 0.4 10^3/ul (0.0-0.0); MYELOCYTES % (M) 7 % (0-0); PLATELET ESTIMATE DECREASED; POIKILOCYTOSIS 3+ (0-0); POLYCHROMASIA 3+ (0-0); PROMYELOCYTES #M 0.1 10^3/ul (0-0); PROMYELOCYTES % (M) 2 % (0-0); SEG NEUT #M 1.9 10^3/ul (1.6-7.5); SEGMENTED NEUTROPHILS (M) % 29 % (39-77); SMUDGE%M 26 % (0-0)
[2018-01-06] MEDS: DIPHENHYDRAMINE 25 MG CAP PO (21:06)
[2018-01-06] MEDS: RIFAXIMIN 550 MG TAB PO (21:07)
[2018-01-06] MEDS: ACETAMINOPHEN 650MG/20.3ML CUP PO (21:07)
[2018-01-07 01:51] LABS: IMMEDIATE SPIN CROSSMATCH 1
[2018-01-07] MEDS: PANTOPRAZOLE 40 MG INJ IV ×2 (05:47→18:52)
[2018-01-07] MEDS: VASOPRESSIN 60 UNIT in DEXTROSE 5% 57 ML IV ×2 (07:00→19:00)
[2018-01-07 07:12] LABS: WHITE BLOOD COUNT 9.3 10^3/ul (4.8-10.8)
[2018-01-07 07:12] LABS: ABNORMAL IP MESSAGE 1; HEMATOCRIT 23.7 % (42.0-52.0); HEMOGLOBIN 8.2 g/dl (14.0-18.0); MEAN CORPUSCULAR HEMOGLOBIN 31.8 pg (29.0-33.0); MEAN CORPUSCULAR HGB CONC 34.6 g/dl (32.0-37.0); MEAN CORPUSCULAR VOLUME 91.9 fl (82.0-101.0); POSITIVE DIFF @See below; RED BLOOD COUNT 2.58 10^6/ul (4.70-6.10); RED CELL DISTRIBUTION WIDTH 17.8 % (11.5-14.5)
[2018-01-07 07:16] LABS: ADD MAN DIFF? YES; PLATELET COUNT 12 10^3/UL (140-415)
[2018-01-07 07:33] LABS: INR 1.36; PT RATIO 1.3
[2018-01-07 07:34] LABS: PARTIAL THROMBOPLASTIN TIME 46.3 Sec (23.0-35.0)
[2018-01-07 07:53] LABS: ANION GAP 14 (5-13); BLOOD UREA NITROGEN 21 mg/dl (7-20); CALCIUM 7.4 mg/dl (8.4-10.2); CARBON DIOXIDE 27 mmol/L (21-31); CHLORIDE 101 mmol/L (97-110); CREATININE 2.62 mg/dl (0.61-1.24); Estimated GFR 24 mL/min (>60); GLUCOSE 56 mg/dl (70-220); MAGNESIUM 2.1 mg/dl (1.7-2.5); PHOSPHORUS 0.9 mg/dl (2.5-4.9); POTASSIUM 3.1 mmol/L (3.5-5.1); SODIUM 142 mmol/L (135-144)
[2018-01-07] MEDS: INSULIN GLARGINE [LANTus] (100 UNITS/ML) SYG SC (08:00)
[2018-01-07] MEDS: SOD CHLORIDE 0.9% 250 ML IV* (08:36)
[2018-01-07] MEDS: LACTOBACILLUS RHAMNOSUS CAP PO ×2 (08:48→20:54)
[2018-01-07] MEDS: RIFAXIMIN 550 MG TAB PO ×2 (08:48→20:54)
[2018-01-07] MEDS: PYRIDOXINE 50 MG TAB NGT (08:48)
[2018-01-07] MEDS: FOLIC ACID 1 MG TAB NGT (08:48)
[2018-01-07] MEDS: THIAMINE 100 MG TAB NGT (08:48)
[2018-01-07 08:49] LABS: CREATINE KINASE 5167 IU/L (23-200)
[2018-01-07] MEDS: MULTIVITAMINS 30 ML CUP NGT (08:49)
[2018-01-07] MEDS: DEXTROSE 50% 50 ML SYRINGE IV ×4 (08:58→19:03)
[2018-01-07 10:54] LABS: ANISOCYTOSIS 3+ (0-0); BAND NEUTROPHILS #M 3.1 10^3/ul (0.0-0.6); BAND NEUTROPHILS % (M) 34 % (0-4); EOSINOPHILS % (M) 5 % (0-7); ERYTHROBLAST% (NRBC) (M) 25 % (0-0); GIANT THROMBO% (M) 4 % (0-0); LYMPHOCYTES #M 2.2 10^3/ul (0.8-2.9); LYMPHOCYTES % (M) 24 % (15-51); METAMYELOCYTES #M 0.1 10^3/ul (0.0-0.0); METAMYELOCYTES %M 2 % (0-0); MONOCYTE #M 0.6 10^3/ul (0.3-0.9); MONOCYTES % (M) 7 % (0-11); MYELOCYTES #M 0.1 10^3/ul (0.0-0.0); MYELOCYTES % (M) 2 % (0-0); PLATELET ESTIMATE SIG DECREASED; POIKILOCYTOSIS 1+ (0-0); SEG NEUT #M 2.8 10^3/ul (1.6-7.5); SEGMENTED NEUTROPHILS (M) % 27 % (39-77); TARGET CELLS 1+ (0-0)
[2018-01-07 12:38] LABS: PLATELET COUNT 60 10^3/UL (140-415); WHITE BLOOD COUNT 12.2 10^3/ul (4.8-10.8)
[2018-01-07 12:38] LABS: ABNORMAL IP MESSAGE 1; HEMATOCRIT 24.1 % (42.0-52.0); HEMOGLOBIN 8.5 g/dl (14.0-18.0); MEAN CORPUSCULAR HEMOGLOBIN 32.6 pg (29.0-33.0); MEAN CORPUSCULAR HGB CONC 35.3 g/dl (32.0-37.0); MEAN CORPUSCULAR VOLUME 92.3 fl (82.0-101.0); MEAN PLATELET VOLUME 12.8 fl (7.4-10.4); NUCLEATED RED BLOOD CELLS% 11.4 /100WBC (0.0-0.0); PLATELET COUNT 66 10^3/UL (140-415); POSITIVE DIFF @See below; RED BLOOD COUNT 2.61 10^6/ul (4.70-6.10); RED CELL DISTRIBUTION WIDTH 18.6 % (11.5-14.5)
[2018-01-07 12:45] LABS: ADD MAN DIFF? YES
[2018-01-07 13:06] LABS: INR 1.34; PROTIME 16.8 Sec (11.9-14.9); PT RATIO 1.3
[2018-01-07 13:07] LABS: PARTIAL THROMBOPLASTIN TIME 44.4 Sec (23.0-35.0)
[2018-01-07 13:08] LABS: THROMBIN TIME 18.8 SEC (13.8-19.1)
[2018-01-07 13:10] LABS: FIBRIN SPLIT PRODUCT >80 and <160 ug/ml (<10)
[2018-01-07] MEDS: POTASSIUM PHOSPHATE 20 MEQ in SOD CHLORIDE 0.9% 250 ML IVPB (13:10)
[2018-01-07 13:25] LABS: ANISOCYTOSIS 2+ (0-0); BAND NEUTROPHILS #M 2.6 10^3/ul (0.0-0.6); BAND NEUTROPHILS % (M) 22 % (0-4); EOSINOPHILS % (M) 3 % (0-7); ERYTHROBLAST% (NRBC) (M) 17 % (0-0); GIANT THROMBO% (M) 1 % (0-0); HYPOCHROMASIA 1+ (0-0); LYMPHOCYTES #M 1.7 10^3/ul (0.8-2.9); LYMPHOCYTES % (M) 14 % (15-51); METAMYELOCYTES #M 0.7 10^3/ul (0.0-0.0); METAMYELOCYTES %M 6 % (0-0); MONOCYTE #M 1.5 10^3/ul (0.3-0.9); MONOCYTES % (M) 13 % (0-11); MYELOCYTES #M 0.7 10^3/ul (0.0-0.0); MYELOCYTES % (M) 6 % (0-0); PLATELET ESTIMATE DECREASED; POIKILOCYTOSIS 1+ (0-0); POLYCHROMASIA 3+ (0-0); PROMYELOCYTES #M 0.1 10^3/ul (0-0); PROMYELOCYTES % (M) 1 % (0-0); REACTIVE LYMPHOCYTES #M 0.3 10^3/ul (0.0-0.0); REACTIVE LYMPHOCYTES% (M) 3 % (0-0); SEG NEUT #M 4.2 10^3/ul (1.6-7.5); SEGMENTED NEUTROPHILS (M) % 32 % (39-77); SMUDGE%M 3 % (0-0); TARGET CELLS 1+ (0-0)
[2018-01-07 14:21] LABS: HAPTOGLOBIN 9 mg/dL (43-212)
[2018-01-07 14:24] LABS: PLATELET COUNT 11 10^3/UL (140-415)
[2018-01-07 14:51] LABS: D-DIMER > 10000.00 ng/ml (<460)
[2018-01-07] MEDS: LIDOCAINE 1% (MPF) 5 ML VIAL SC (16:00)
[2018-01-07] MEDS: CEFTRIAXONE 1 GM/50 ML (PMX) 50 ML IVPB (16:09)
[2018-01-07] MEDS: [UNRECOGNIZED DRUG - REMARK] XX (17:30)
[2018-01-07 18:27] LABS: ABNORMAL IP MESSAGE 1; HEMATOCRIT 23.9 % (42.0-52.0); HEMOGLOBIN 8.4 g/dl (14.0-18.0); MEAN CORPUSCULAR HEMOGLOBIN 31.8 pg (29.0-33.0); MEAN CORPUSCULAR HGB CONC 35.1 g/dl (32.0-37.0); MEAN CORPUSCULAR VOLUME 90.5 fl (82.0-101.0); NUCLEATED RED BLOOD CELLS% 11.9 /100WBC (0.0-0.0); POSITIVE DIFF @See below; RED BLOOD COUNT 2.64 10^6/ul (4.70-6.10); RED CELL DISTRIBUTION WIDTH 18.2 % (11.5-14.5)
[2018-01-07 18:30] LABS: ADD MAN DIFF? YES; MEAN PLATELET VOLUME 9.6 fl (7.4-10.4); PLATELET COUNT 35 10^3/UL (140-415)
[2018-01-07 19:25] LABS: ANISOCYTOSIS 2+ (0-0); BAND NEUTROPHILS #M 3.2 10^3/ul (0.0-0.6); BAND NEUTROPHILS % (M) 20 % (0-4); BASOPHIL #M 0.3 10^3/ul (0.0-0.0); BASOPHILS % (M) 2 % (0-2); BURR CELLS 1+ (0-0); EOSINOPHILS % (M) 1 % (0-7); ERYTHROBLAST% (NRBC) (M) 13 % (0-0); GIANT THROMBO% (M) 9 % (0-0); HYPOCHROMASIA 2+ (0-0); LYMPHOCYTES #M 1.7 10^3/ul (0.8-2.9); LYMPHOCYTES % (M) 11 % (15-51); METAMYELOCYTES #M 0.3 10^3/ul (0.0-0.0); METAMYELOCYTES %M 2 % (0-0); MONOCYTE #M 2.2 10^3/ul (0.3-0.9); MONOCYTES % (M) 14 % (0-11); MYELOCYTES #M 1.1 10^3/ul (0.0-0.0); MYELOCYTES % (M) 7 % (0-0); PLATELET ESTIMATE SIG DECREASED; POIKILOCYTOSIS 1+ (0-0); POLYCHROMASIA 2+ (0-0); PROMYELOCYTES #M 0.3 10^3/ul (0-0); PROMYELOCYTES % (M) 2 % (0-0); SEG NEUT #M 7.1 10^3/ul (1.6-7.5); SEGMENTED NEUTROPHILS (M) % 41 % (39-77)
[2018-01-08 00:54] LABS: ABNORMAL IP MESSAGE 1; HEMATOCRIT 23.8 % (42.0-52.0); HEMOGLOBIN 8.4 g/dl (14.0-18.0); MEAN CORPUSCULAR HEMOGLOBIN 32.1 pg (29.0-33.0); MEAN CORPUSCULAR HGB CONC 35.3 g/dl (32.0-37.0); MEAN CORPUSCULAR VOLUME 90.8 fl (82.0-101.0); MEAN PLATELET VOLUME 10.8 fl (7.4-10.4); NUCLEATED RED BLOOD CELLS% 14.1 /100WBC (0.0-0.0); POSITIVE DIFF @See below; RED BLOOD COUNT 2.62 10^6/ul (4.70-6.10); RED CELL DISTRIBUTION WIDTH 18.4 % (11.5-14.5)
[2018-01-08 00:54] LABS: WHITE BLOOD COUNT 19.1 10^3/ul (4.8-10.8)
[2018-01-08 00:58] LABS: PLATELET COUNT 21 10^3/UL (140-415)
[2018-01-08 01:48] LABS: ADD MAN DIFF? YES
[2018-01-08 02:01] LABS: ANISOCYTOSIS 3+ (0-0); BAND NEUTROPHILS #M 3.4 10^3/ul (0.0-0.6); BAND NEUTROPHILS % (M) 18 % (0-4); BASOPHIL #M 0.1 10^3/ul (0.0-0.0); BASOPHILS % (M) 1 % (0-2); ERYTHROBLAST% (NRBC) (M) 33 % (0-0); GIANT THROMBO% (M) 3 % (0-0); LYMPHOCYTES #M 2.6 10^3/ul (0.8-2.9); LYMPHOCYTES % (M) 14 % (15-51); METAMYELOCYTES #M 0.5 10^3/ul (0.0-0.0); METAMYELOCYTES %M 3 % (0-0); MONOCYTE #M 2.2 10^3/ul (0.3-0.9); MONOCYTES % (M) 12 % (0-11); MYELOCYTES #M 1.3 10^3/ul (0.0-0.0); MYELOCYTES % (M) 7 % (0-0); PLATELET ESTIMATE SIG DECREASED; POIKILOCYTOSIS 2+ (0-0); PROMYELOCYTES #M 0.3 10^3/ul (0-0); PROMYELOCYTES % (M) 2 % (0-0); SEG NEUT #M 8.9 10^3/ul (1.6-7.5); SEGMENTED NEUTROPHILS (M) % 43 % (39-77); SMUDGE%M 15 % (0-0)
[2018-01-08 05:18] LABS: AADO2 Arterial 60.3 mmHg (7.0-24.0); Allen Test ACCEPTAB; Arterial Base Excess 4.4 mmol/L (-3.0-3); Arterial Blood Gas Oxygen Sat 97.9 mmHG (95.0-98.0); Arterial COHb 0.6 % (0.0-3.0); Arterial HCO3 28.6 mmol/L (22.0-26.0); Arterial MetHb 0.3 % (0.0-1.5); Arterial Total Hemglobin 9.9 g/dl (12.0-18.0); Arterial pCO2 41.2 mmhg (35-45); MODE VENT - AC; Site Left Radial
[2018-01-08] MEDS: PANTOPRAZOLE 40 MG INJ IV ×2 (05:48→17:09)
[2018-01-08] MEDS: ACCU-CHEK XX ×4 (05:48→17:14)
[2018-01-08 06:33] LABS: ABNORMAL IP MESSAGE 1; HEMATOCRIT 23.5 % (42.0-52.0); HEMOGLOBIN 8.2 g/dl (14.0-18.0); MEAN CORPUSCULAR HEMOGLOBIN 31.7 pg (29.0-33.0); MEAN CORPUSCULAR HGB CONC 34.9 g/dl (32.0-37.0); MEAN CORPUSCULAR VOLUME 90.7 fl (82.0-101.0); MEAN PLATELET VOLUME 12.5 fl (7.4-10.4); NUCLEATED RED BLOOD CELLS% 16.7 /100WBC (0.0-0.0); POSITIVE DIFF @See below; RED BLOOD COUNT 2.59 10^6/ul (4.70-6.10); RED CELL DISTRIBUTION WIDTH 18.3 % (11.5-14.5)
[2018-01-08 06:33] LABS: WHITE BLOOD COUNT 19.7 10^3/ul (4.8-10.8)
[2018-01-08 06:39] LABS: PROTIME 16.4 Sec (11.9-14.9); PT RATIO 1.3
[2018-01-08 06:40] LABS: PARTIAL THROMBOPLASTIN TIME 43.7 Sec (23.0-35.0); THROMBIN TIME 18.7 SEC (13.8-19.1)
[2018-01-08 06:45] LABS: INR 1.35; PROTIME 16.9 Sec (11.9-14.9); PT RATIO 1.3
[2018-01-08 06:46] LABS: PARTIAL THROMBOPLASTIN TIME 43.4 Sec (23.0-35.0)
[2018-01-08 06:54] LABS: ADD MAN DIFF? YES; PLATELET COUNT 13 10^3/UL (140-415)
[2018-01-08 06:59] LABS: PLATELET COUNT 14 10^3/UL (140-415)
[2018-01-08] MEDS: VASOPRESSIN 60 UNIT in DEXTROSE 5% 57 ML IV ×2 (07:00→19:00)
[2018-01-08 07:05] LABS: LACTIC ACID 2.1 mmol/L (0.5-2.0)
[2018-01-08 07:22] LABS: ALANINE AMINOTRANSFERASE 142 IU/L (13-69); ALBUMIN 2.6 g/dl (3.3-4.9); ALBUMIN/GLOBULIN RATIO 1.13; ALKALINE PHOSPHATASE 191 IU/L (42-121); ANION GAP 11 (5-13); ASPARTATE AMINO TRANSFERASE 420 IU/L (15-46); BILIRUBIN,INDIRECT 2.5 mg/dl (0-1.1); BILIRUBIN,TOTAL 12.5 mg/dl (0.2-1.3); BLOOD UREA NITROGEN 34 mg/dl (7-20); CALCIUM 7.7 mg/dl (8.4-10.2); CARBON DIOXIDE 31 mmol/L (21-31); CHLORIDE 101 mmol/L (97-110); CREATININE 3.81 mg/dl (0.61-1.24); Estimated GFR 16 mL/min (>60); GLUCOSE 67 mg/dl (70-220); SODIUM 143 mmol/L (135-144); TOTAL PROTEIN 4.9 g/dl (6.1-8.1)
[2018-01-08 07:29] LABS: POTASSIUM 2.6 mmol/L (3.5-5.1)
[2018-01-08 07:30] LABS: PHOSPHORUS 0.6 mg/dl (2.5-4.9)
[2018-01-08 07:30] LABS: MAGNESIUM 2.1 mg/dl (1.7-2.5)
[2018-01-08 07:41] LABS: CREATINE KINASE 2270 IU/L (23-200)
[2018-01-08] MEDS: POTASSIUM CHLORIDE 50 ML IVPB ×3 (08:16→12:14)
[2018-01-08] MEDS: NEUTRA-PHOS 250 MG PACKET PO (08:16)
[2018-01-08] MEDS: LACTOBACILLUS RHAMNOSUS CAP PO ×2 (08:17→20:39)
[2018-01-08] MEDS: MULTIVITAMINS 30 ML CUP NGT (08:17)
[2018-01-08] MEDS: RIFAXIMIN 550 MG TAB PO (08:17)
[2018-01-08] MEDS: FOLIC ACID 1 MG TAB NGT (08:17)
[2018-01-08] MEDS: THIAMINE 100 MG TAB NGT (08:17)
[2018-01-08 08:59] LABS: D-DIMER > 10000.00 ng/ml (<460)
[2018-01-08 09:00] LABS: ANISOCYTOSIS 2+ (0-0); BAND NEUTROPHILS #M 6.1 10^3/ul (0.0-0.6); BAND NEUTROPHILS % (M) 31 % (0-4); BURR CELLS 1+ (0-0); ERYTHROBLAST% (NRBC) (M) 9 % (0-0); FIBRIN SPLIT PRODUCT >80 and <160 ug/ml (<10); GIANT THROMBO% (M) 3 % (0-0); LYMPHOCYTES #M 1.1 10^3/ul (0.8-2.9); LYMPHOCYTES % (M) 6 % (15-51); METAMYELOCYTES #M 0.7 10^3/ul (0.0-0.0); METAMYELOCYTES %M 4 % (0-0); MICROCYTOSIS 1+ (0-0); MONOCYTE #M 1.3 10^3/ul (0.3-0.9); MONOCYTES % (M) 7 % (0-11); MYELOCYTES #M 1.5 10^3/ul (0.0-0.0); MYELOCYTES % (M) 8 % (0-0); OVALOCYTES 1+ (0-0); PLATELET ESTIMATE SIG DECREASED; POIKILOCYTOSIS 2+ (0-0); POLYCHROMASIA 3+ (0-0); PROMYELOCYTES #M 0.3 10^3/ul (0-0); PROMYELOCYTES % (M) 2 % (0-0); REACTIVE LYMPHOCYTES #M 0.3 10^3/ul (0.0-0.0); REACTIVE LYMPHOCYTES% (M) 2 % (0-0); SEG NEUT #M 9.1 10^3/ul (1.6-7.5); SEGMENTED NEUTROPHILS (M) % 40 % (39-77); STOMATOCYTES 1+ (0-0); TARGET CELLS 1+ (0-0); TOXIC GRANULATION 1+ (0-0)
[2018-01-08] MEDS: PYRIDOXINE 50 MG TAB NGT (09:00)
[2018-01-08 09:29] LABS: TYPE AND SCREEN 1
[2018-01-08] MEDS: POTASSIUM PHOSPHATE 40 MEQ in SOD CHLORIDE 0.9% 250 ML IVPB (13:24)
[2018-01-08] MEDS: RIFAXIMIN 550 MG TAB NGT ×2 (13:30→20:40)
[2018-01-08] MEDS: CEFTRIAXONE 1 GM/50 ML (PMX) 50 ML IVPB (15:38)
[2018-01-08] MEDS: [UNRECOGNIZED DRUG - REMARK] XX (17:04)
[2018-01-08] MEDS: LORAZEPAM 2 MG INJ IV (17:09)
[2018-01-09] MEDS: ACCU-CHEK XX ×4 (00:26→17:18)
[2018-01-09] MEDS: LORAZEPAM 2 MG INJ IV ×2 (03:11→21:04)
[2018-01-09] MEDS ORDERED: NORepinephrine 8MG/250 ML (PMX 250 ML (04:40)
[2018-01-09] MEDS: NORepinephrine 8MG/250 ML (PMX 250 ML IV (04:50)
[2018-01-09] MEDS: PANTOPRAZOLE 40 MG INJ IV ×2 (05:11→17:12)
[2018-01-09 05:14] LABS: AADO2 Arterial 51.7 mmHg (7.0-24.0); Allen Test ACCEPTAB; Arterial Base Excess 5.5 mmol/L (-3.0-3); Arterial Blood Gas Oxygen Sat 98.8 mmHG (95.0-98.0); Arterial COHb 2.2 % (0.0-3.0); Arterial HCO3 28.7 mmol/L (22.0-26.0); Arterial MetHb 0.6 % (0.0-1.5); Arterial Total Hemglobin 8.7 g/dl (12.0-18.0); Arterial pCO2 36.4 mmhg (35-45); MODE VENT - AC; Site Right Radial
[2018-01-09 05:52] LABS: WHITE BLOOD COUNT 23.3 10^3/ul (4.8-10.8)
[2018-01-09 05:52] LABS: ABNORMAL IP MESSAGE 1; HEMATOCRIT 23.1 % (42.0-52.0); HEMOGLOBIN 8.1 g/dl (14.0-18.0); MEAN CORPUSCULAR HEMOGLOBIN 32.1 pg (29.0-33.0); MEAN CORPUSCULAR HGB CONC 35.1 g/dl (32.0-37.0); MEAN CORPUSCULAR VOLUME 91.7 fl (82.0-101.0); MEAN PLATELET VOLUME 13.4 fl (7.4-10.4); POSITIVE DIFF @See below; RED BLOOD COUNT 2.52 10^6/ul (4.70-6.10)
[2018-01-09 06:09] LABS: LACTIC ACID 2.1 mmol/L (0.5-2.0)
[2018-01-09 06:10] LABS: ALANINE AMINOTRANSFERASE 129 IU/L (13-69); ALBUMIN 2.6 g/dl (3.3-4.9); ALKALINE PHOSPHATASE 197 IU/L (42-121); ANION GAP 9 (5-13); ASPARTATE AMINO TRANSFERASE 296 IU/L (15-46); BILIRUBIN,INDIRECT 2.4 mg/dl (0-1.1); BILIRUBIN,TOTAL 12.9 mg/dl (0.2-1.3); BLOOD UREA NITROGEN 26 mg/dl (7-20); CARBON DIOXIDE 34 mmol/L (21-31); CHLORIDE 100 mmol/L (97-110); CREATINE KINASE 1152 IU/L (23-200); CREATININE 2.98 mg/dl (0.61-1.24); Estimated GFR 21 mL/min (>60); GLUCOSE 108 mg/dl (70-220); POTASSIUM 3.2 mmol/L (3.5-5.1); SODIUM 143 mmol/L (135-144); TOTAL PROTEIN 5.2 g/dl (6.1-8.1)
[2018-01-09 06:31] LABS: ADD MAN DIFF? YES; PLATELET COUNT 21 10^3/UL (140-415)
[2018-01-09] MEDS: VASOPRESSIN 60 UNIT in DEXTROSE 5% 57 ML IV ×2 (07:00→19:00)
[2018-01-09 07:13] LABS: ANISOCYTOSIS 2+ (0-0); EOSINOPHILS % (M) 2 % (0-7); ERYTHROBLAST% (NRBC) (M) 132 % (0-0); LYMPHOCYTES #M 8.3 10^3/ul (0.8-2.9); LYMPHOCYTES % (M) 36 % (15-51); MONOCYTE #M 1.3 10^3/ul (0.3-0.9); MONOCYTES % (M) 6 % (0-11); MYELOCYTES #M 0.4 10^3/ul (0.0-0.0); MYELOCYTES % (M) 2 % (0-0); PLATELET ESTIMATE SIG DECREASED; POIKILOCYTOSIS 1+ (0-0); SEGMENTED NEUTROPHILS (M) % 54 % (39-77); SMUDGE%M 15 % (0-0); TARGET CELLS 1+ (0-0)
[2018-01-09] MEDS: FOLIC ACID 1 MG TAB NGT (08:02)
[2018-01-09] MEDS: PYRIDOXINE 50 MG TAB NGT (08:02)
[2018-01-09] MEDS: LACTOBACILLUS RHAMNOSUS CAP PO ×2 (08:02→21:04)
[2018-01-09] MEDS: RIFAXIMIN 550 MG TAB NGT ×2 (08:02→21:04)
[2018-01-09] MEDS: MULTIVITAMINS 30 ML CUP NGT (08:03)
[2018-01-09] MEDS: POTASSIUM CHLORIDE 50 ML IVPB (08:03)
[2018-01-09] MEDS: THIAMINE 100 MG TAB NGT (08:03)
[2018-01-09] MEDS: POTASSIUM CHLORIDE 20 MEQ POWDER FOR ORAL SOLN NGT (08:43)
[2018-01-09] MEDS: CEFTRIAXONE 1 GM/50 ML (PMX) 50 ML IVPB (15:26)
[2018-01-09] MEDS: [UNRECOGNIZED DRUG - REMARK] XX (15:30)
[2018-01-10] MEDS: LORAZEPAM 2 MG INJ IV (00:02)
[2018-01-10] MEDS: PANTOPRAZOLE 40 MG INJ IV ×2 (05:50→17:09)
[2018-01-10] MEDS: ACCU-CHEK XX ×4 (06:00→17:10)
[2018-01-10] MEDS: VASOPRESSIN 60 UNIT in DEXTROSE 5% 57 ML IV ×2 (07:00→19:00)
[2018-01-10 07:21] LABS: ADD MAN DIFF? NO
[2018-01-10 07:36] LABS: ABNORMAL IP MESSAGE 1; BASOPHIL # 0.1 10^3/ul (0.0-0.1); BASOPHILS % 0.6 % (0.0-2.0); EOSINOPHILS # 0.2 10^3/ul (0.0-0.5); EOSINOPHILS % 0.8 % (0.0-7.0); HEMATOCRIT 22.7 % (42.0-52.0); HEMOGLOBIN 7.7 g/dl (14.0-18.0); LYMPHOCYTES # 1.7 10^3/ul (0.8-2.9); LYMPHOCYTES % 7.6 % (15.0-51.0); MEAN CORPUSCULAR HEMOGLOBIN 32.1 pg (29.0-33.0); MEAN CORPUSCULAR HGB CONC 33.9 g/dl (32.0-37.0); MEAN CORPUSCULAR VOLUME 94.6 fl (82.0-101.0); MONOCYTE # 1.6 10^3/ul (0.3-0.9); NEUTROPHIL # 17.1 10^3/ul (1.6-7.5); NEUTROPHILS % 76.6 % (39.0-77.0); NUCLEATED RED BLOOD CELLS # 2.8 10^3/ul (0.0-0.0); NUCLEATED RED BLOOD CELLS% 12.4 /100WBC (0.0-0.0); POSITIVE DIFF @See below; RED CELL DISTRIBUTION WIDTH 19.6 % (11.5-14.5)
[2018-01-10 07:36] LABS: WHITE BLOOD COUNT 22.3 10^3/ul (4.8-10.8)
[2018-01-10 07:45] LABS: PLATELET COUNT 19 10^3/UL (140-415)
[2018-01-10 07:59] LABS: ANION GAP 9 (5-13); BLOOD UREA NITROGEN 43 mg/dl (7-20); CALCIUM 8.2 mg/dl (8.4-10.2); CARBON DIOXIDE 32 mmol/L (21-31); CHLORIDE 105 mmol/L (97-110); CREATININE 4.53 mg/dl (0.61-1.24); Estimated GFR 13 mL/min (>60); GLUCOSE 117 mg/dl (70-220); MAGNESIUM 2.2 mg/dl (1.7-2.5); POTASSIUM 3.4 mmol/L (3.5-5.1); SODIUM 146 mmol/L (135-144)
[2018-01-10] MEDS: LACTOBACILLUS RHAMNOSUS CAP PO ×2 (08:21→20:57)
[2018-01-10] MEDS: THIAMINE 100 MG TAB NGT (08:22)
[2018-01-10] MEDS: FOLIC ACID 1 MG TAB NGT (08:22)
[2018-01-10] MEDS: RIFAXIMIN 550 MG TAB NGT ×2 (08:22→20:57)
[2018-01-10] MEDS: MULTIVITAMINS 30 ML CUP NGT (08:22)
[2018-01-10] MEDS: PYRIDOXINE 50 MG TAB NGT (08:23)
[2018-01-10 09:41] LABS: ANISOCYTOSIS 3+ (0-0); BAND NEUTROPHILS #M 5.7 10^3/ul (0.0-0.6); BAND NEUTROPHILS % (M) 26 % (0-4); BURR CELLS 1+ (0-0); ERYTHROBLAST% (NRBC) (M) 30 % (0-0); GIANT THROMBO% (M) 5 % (0-0); LYMPHOCYTES #M 1.5 10^3/ul (0.8-2.9); LYMPHOCYTES % (M) 7 % (15-51); METAMYELOCYTES #M 0.4 10^3/ul (0.0-0.0); METAMYELOCYTES %M 2 % (0-0); MONOCYTE #M 0.6 10^3/ul (0.3-0.9); MONOCYTES % (M) 3 % (0-11); MYELOCYTES #M 0.4 10^3/ul (0.0-0.0); MYELOCYTES % (M) 2 % (0-0); OVALOCYTES 1+ (0-0); PLATELET ESTIMATE SIG DECREASED; POIKILOCYTOSIS 1+ (0-0); POLYCHROMASIA 1+ (0-0); PROMYELOCYTES #M 0.6 10^3/ul (0-0); PROMYELOCYTES % (M) 3 % (0-0); REACTIVE LYMPHOCYTES #M 0.4 10^3/ul (0.0-0.0); REACTIVE LYMPHOCYTES% (M) 2 % (0-0); SCHISTOCYTES 1+ (0-0); SEG NEUT #M 13.5 10^3/ul (1.6-7.5); SEGMENTED NEUTROPHILS (M) % 55 % (39-77); SMUDGE%M 17 % (0-0); TARGET CELLS 2+ (0-0)
[2018-01-10] MEDS: POTASSIUM PHOSPHATE 20 MEQ in SOD CHLORIDE 0.9% 250 ML IVPB (09:43)
[2018-01-10] MEDS: ALBUMIN HUMAN 25% 100 ML IV (11:00)
[2018-01-10] MEDS: metroNIDAZOLE 500 MG TAB NGT ×2 (14:23→20:57)
[2018-01-10] MEDS: CEFTRIAXONE 1 GM/50 ML (PMX) 50 ML IVPB (15:35)
[2018-01-10] MEDS: [UNRECOGNIZED DRUG - REMARK] XX (17:09)
[2018-01-10 20:20] LABS: WHITE BLOOD COUNT 19.2 10^3/ul (4.8-10.8)
[2018-01-10 20:20] LABS: ABNORMAL IP MESSAGE 1; HEMATOCRIT 20.8 % (42.0-52.0); HEMOGLOBIN 7.1 g/dl (14.0-18.0); MEAN CORPUSCULAR HEMOGLOBIN 32.1 pg (29.0-33.0); MEAN CORPUSCULAR HGB CONC 34.1 g/dl (32.0-37.0); MEAN CORPUSCULAR VOLUME 94.1 fl (82.0-101.0); POSITIVE DIFF @See below; RED BLOOD COUNT 2.21 10^6/ul (4.70-6.10); RED CELL DISTRIBUTION WIDTH 19.9 % (11.5-14.5)
[2018-01-10 20:27] LABS: PLATELET COUNT 25 10^3/UL (140-415)
[2018-01-10 20:28] LABS: ADD MAN DIFF? YES
[2018-01-10 20:51] LABS: ANISOCYTOSIS 3+ (0-0); BAND NEUTROPHILS #M 1.5 10^3/ul (0.0-0.6); BAND NEUTROPHILS % (M) 8 % (0-4); EOSINOPHILS % (M) 2 % (0-7); ERYTHROBLAST% (NRBC) (M) 11 % (0-0); GIANT THROMBO% (M) 3 % (0-0); LYMPHOCYTES #M 2.3 10^3/ul (0.8-2.9); LYMPHOCYTES % (M) 12 % (15-51); MONOCYTE #M 1.1 10^3/ul (0.3-0.9); MONOCYTES % (M) 6 % (0-11); MYELOCYTES #M 0.5 10^3/ul (0.0-0.0); MYELOCYTES % (M) 3 % (0-0); PLATELET ESTIMATE SIG DECREASED; POLYCHROMASIA 1+ (0-0); REACTIVE LYMPHOCYTES #M 0.1 10^3/ul (0.0-0.0); REACTIVE LYMPHOCYTES% (M) 1 % (0-0); SEG NEUT #M 13.3 10^3/ul (1.6-7.5); SEGMENTED NEUTROPHILS (M) % 68 % (39-77); SMUDGE%M 4 % (0-0)
[2018-01-11] MEDS: LORAZEPAM 2 MG INJ IV ×2 (04:11→07:32)
[2018-01-11 05:27] LABS: INR 2.83; PROTIME 30.6 Sec (11.9-14.9); PT RATIO 2.4
[2018-01-11 05:28] LABS: PARTIAL THROMBOPLASTIN TIME 63.5 Sec (23.0-35.0)
[2018-01-11 05:29] LABS: WHITE BLOOD COUNT 19.2 10^3/ul (4.8-10.8)
[2018-01-11 05:29] LABS: ABNORMAL IP MESSAGE 1; HEMATOCRIT 21.2 % (42.0-52.0); HEMOGLOBIN 7.2 g/dl (14.0-18.0); MEAN CORPUSCULAR HEMOGLOBIN 32.1 pg (29.0-33.0); MEAN CORPUSCULAR VOLUME 94.6 fl (82.0-101.0); NUCLEATED RED BLOOD CELLS% 8.6 /100WBC (0.0-0.0); PLATELET COUNT 35 10^3/UL (140-415); POSITIVE DIFF @See below; RED BLOOD COUNT 2.24 10^6/ul (4.70-6.10); RED CELL DISTRIBUTION WIDTH 20.2 % (11.5-14.5)
[2018-01-11] MEDS: PANTOPRAZOLE 40 MG INJ IV ×2 (05:30→17:09)
[2018-01-11] MEDS: ACCU-CHEK XX ×4 (05:31→17:09)
[2018-01-11] MEDS: metroNIDAZOLE 500 MG TAB NGT ×3 (05:31→21:35)
[2018-01-11 05:49] LABS: ANION GAP 10 (5-13); BLOOD UREA NITROGEN 26 mg/dl (7-20); CALCIUM 8.2 mg/dl (8.4-10.2); CARBON DIOXIDE 30 mmol/L (21-31); CHLORIDE 102 mmol/L (97-110); CREATININE 3.05 mg/dl (0.61-1.24); Estimated GFR 20 mL/min (>60); GLUCOSE 91 mg/dl (70-220); MAGNESIUM 2.1 mg/dl (1.7-2.5); PHOSPHORUS 1.4 mg/dl (2.5-4.9); POTASSIUM 3.6 mmol/L (3.5-5.1); SODIUM 142 mmol/L (135-144)
[2018-01-11 05:55] LABS: ADD MAN DIFF? YES
[2018-01-11] MEDS: VASOPRESSIN 60 UNIT in DEXTROSE 5% 57 ML IV (07:00)
[2018-01-11 07:04] LABS: 50/50 PTT IMMED 39.9 Sec
[2018-01-11 07:42] LABS: ANISOCYTOSIS 3+ (0-0); BAND NEUTROPHILS #M 4.2 10^3/ul (0.0-0.6); BAND NEUTROPHILS % (M) 22 % (0-4); EOSINOPHILS % (M) 2 % (0-7); ERYTHROBLAST% (NRBC) (M) 10 % (0-0); GIANT THROMBO% (M) 2 % (0-0); HYPOCHROMASIA 1+ (0-0); LYMPHOCYTES #M 1.5 10^3/ul (0.8-2.9); LYMPHOCYTES % (M) 8 % (15-51); MONOCYTE #M 0.5 10^3/ul (0.3-0.9); MONOCYTES % (M) 3 % (0-11); MYELOCYTES #M 0.1 10^3/ul (0.0-0.0); MYELOCYTES % (M) 1 % (0-0); PLATELET ESTIMATE SIG DECREASED; POLYCHROMASIA 3+ (0-0); PROMYELOCYTES #M 0.1 10^3/ul (0-0); PROMYELOCYTES % (M) 1 % (0-0); REACTIVE LYMPHOCYTES #M 0.3 10^3/ul (0.0-0.0); REACTIVE LYMPHOCYTES% (M) 2 % (0-0); SEG NEUT #M 12.5 10^3/ul (1.6-7.5); SEGMENTED NEUTROPHILS (M) % 61 % (39-77); SMUDGE%M 2 % (0-0)
[2018-01-11] MEDS: THIAMINE 100 MG TAB NGT (08:17)
[2018-01-11] MEDS: MULTIVITAMINS 30 ML CUP NGT (08:17)
[2018-01-11] MEDS: FOLIC ACID 1 MG TAB NGT (08:17)
[2018-01-11] MEDS: RIFAXIMIN 550 MG TAB NGT ×2 (08:17→20:51)
[2018-01-11] MEDS: PYRIDOXINE 50 MG TAB NGT (08:17)
[2018-01-11] MEDS: LACTOBACILLUS RHAMNOSUS CAP PO ×2 (08:17→20:51)
[2018-01-11] MEDS: POTASSIUM PHOSPHATE 30 MM in SOD CHLORIDE 0.9% 250 ML IVPB (10:05)
[2018-01-11] MEDS: DEXMEDETOMIDINE HCL 200 MCG in SOD CHLORIDE 0.9% 48 ML IV ×2 (10:07→20:13)
[2018-01-11] MEDS: FLUCONAZOLE 100 MG TAB PO (13:24)
[2018-01-11] MEDS: CEFTRIAXONE 1 GM/50 ML (PMX) 50 ML IVPB (17:06)
[2018-01-11] MEDS: [UNRECOGNIZED DRUG - REMARK] XX (17:09)
[2018-01-12] MEDS: metroNIDAZOLE 500 MG TAB NGT ×2 (05:32→13:25)
[2018-01-12] MEDS: PANTOPRAZOLE 40 MG INJ IV ×2 (05:32→17:28)
[2018-01-12] MEDS: ACCU-CHEK XX ×5 (05:32→23:17)
[2018-01-12 05:51] LABS: WHITE BLOOD COUNT 19.6 10^3/ul (4.8-10.8)
[2018-01-12 05:51] LABS: ABNORMAL IP MESSAGE 1; HEMATOCRIT 19.5 % (42.0-52.0); MEAN CORPUSCULAR HEMOGLOBIN 31.7 pg (29.0-33.0); MEAN CORPUSCULAR HGB CONC 33.8 g/dl (32.0-37.0); MEAN CORPUSCULAR VOLUME 93.8 fl (82.0-101.0); NUCLEATED RED BLOOD CELLS% 4.8 /100WBC (0.0-0.0); PLATELET COUNT 58 10^3/UL (140-415); POSITIVE DIFF @See below; RED BLOOD COUNT 2.08 10^6/ul (4.70-6.10); RED CELL DISTRIBUTION WIDTH 20.5 % (11.5-14.5)
[2018-01-12 05:57] LABS: ADD MAN DIFF? YES; HEMOGLOBIN 6.6 g/dl (14.0-18.0)
[2018-01-12 06:10] LABS: INR 1.15; PROTIME 14.9 Sec (11.9-14.9); PT RATIO 1.2
[2018-01-12 06:11] LABS: PARTIAL THROMBOPLASTIN TIME 41.1 Sec (23.0-35.0)
[2018-01-12 06:14] LABS: ANION GAP 13 (5-13); BLOOD UREA NITROGEN 23 mg/dl (7-20); CALCIUM 7.7 mg/dl (8.4-10.2); CARBON DIOXIDE 26 mmol/L (21-31); CHLORIDE 103 mmol/L (97-110); CREATININE 2.57 mg/dl (0.61-1.24); Estimated GFR 25 mL/min (>60); GLUCOSE 85 mg/dl (70-220); MAGNESIUM 1.9 mg/dl (1.7-2.5); PHOSPHORUS 2.7 mg/dl (2.5-4.9); POTASSIUM 3.7 mmol/L (3.5-5.1); SODIUM 142 mmol/L (135-144)
[2018-01-12 06:21] LABS: ALANINE AMINOTRANSFERASE 105 IU/L (13-69); ALBUMIN 2.4 g/dl (3.3-4.9); ALKALINE PHOSPHATASE 155 IU/L (42-121); ASPARTATE AMINO TRANSFERASE 114 IU/L (15-46); BILIRUBIN,INDIRECT 2.3 mg/dl (0-1.1); BILIRUBIN,TOTAL 14.6 mg/dl (0.2-1.3)
[2018-01-12 06:58] LABS: ANISOCYTOSIS 2+ (0-0); BAND NEUTROPHILS #M 3.1 10^3/ul (0.0-0.6); BAND NEUTROPHILS % (M) 16 % (0-4); BASOPHIL #M 0.1 10^3/ul (0.0-0.0); BASOPHILS % (M) 1 % (0-2); EOSINOPHILS % (M) 1 % (0-7); ERYTHROBLAST% (NRBC) (M) 11 % (0-0); GIANT THROMBO% (M) 3 % (0-0); HYPOCHROMASIA 3+ (0-0); LYMPHOCYTES #M 1.1 10^3/ul (0.8-2.9); LYMPHOCYTES % (M) 6 % (15-51); MICROCYTOSIS 1+ (0-0); MONOCYTE #M 0.3 10^3/ul (0.3-0.9); MONOCYTES % (M) 2 % (0-11); MYELOCYTES #M 0.1 10^3/ul (0.0-0.0); MYELOCYTES % (M) 1 % (0-0); PLASMA CELLS #M 0.1 10^3/ul (0.0-0.0); PLASMAC%(M) 1 % (0); PLATELET ESTIMATE DECREASED; POLYCHROMASIA 2+ (0-0); PROMYELOCYTES #M 0.3 10^3/ul (0-0); PROMYELOCYTES % (M) 2 % (0-0); SEG NEUT #M 14.3 10^3/ul (1.6-7.5); SEGMENTED NEUTROPHILS (M) % 70 % (39-77); SMUDGE%M 5 % (0-0); TARGET CELLS 1+ (0-0)
[2018-01-12] MEDS: VASOPRESSIN 60 UNIT in DEXTROSE 5% 57 ML IV (07:00)
[2018-01-12] MEDS: FOLIC ACID 1 MG TAB NGT (08:29)
[2018-01-12] MEDS: MULTIVITAMINS 30 ML CUP NGT (08:29)
[2018-01-12] MEDS: PYRIDOXINE 50 MG TAB NGT (08:29)
[2018-01-12] MEDS: THIAMINE 100 MG TAB NGT (08:29)
[2018-01-12] MEDS: RIFAXIMIN 550 MG TAB NGT ×2 (08:29→20:30)
[2018-01-12] MEDS: LACTOBACILLUS RHAMNOSUS CAP PO ×2 (08:29→20:30)
[2018-01-12] MEDS: FLUCONAZOLE 100 MG TAB PO (08:29)
[2018-01-12] MEDS: ALBUMIN HUMAN 25% 50 ML IV ×3 (08:31→23:17)
[2018-01-12 09:44] LABS: IMMEDIATE SPIN CROSSMATCH 1 2
[2018-01-12] MEDS: DEXMEDETOMIDINE HCL 200 MCG in SOD CHLORIDE 0.9% 48 ML IV ×3 (12:34→23:17)
[2018-01-12] MEDS ORDERED: ERTAPENEM SODIUM 1 GM in SOD CHLORIDE 0.9% 100 ML IVPB (15:00)
[2018-01-12] MEDS: ERTAPENEM SODIUM 0.5 GM in SOD CHLORIDE 0.9% 100 ML IVPB (16:19)
[2018-01-12] MEDS: [UNRECOGNIZED DRUG - REMARK] XX (17:17)
[2018-01-12] MEDS: BALSAM PERU/CASTOR OIL 60 GM TUBE TOP (20:30)
[2018-01-12] MEDS: NYSTATIN 30 GM POWDER BTL TOP (20:30)
[2018-01-12] MEDS: LORAZEPAM 2 MG INJ IV (23:54)
[2018-01-13] MEDS: DEXMEDETOMIDINE HCL 200 MCG in SOD CHLORIDE 0.9% 48 ML IV ×6 (01:44→20:33)
[2018-01-13] MEDS: ACCU-CHEK XX ×3 (05:18→17:23)
[2018-01-13] MEDS: PANTOPRAZOLE 40 MG INJ IV ×2 (05:18→17:04)
[2018-01-13 05:36] LABS: ABNORMAL IP MESSAGE 1; HEMATOCRIT 25.1 % (42.0-52.0); HEMOGLOBIN 8.4 g/dl (14.0-18.0); MEAN CORPUSCULAR HEMOGLOBIN 31.1 pg (29.0-33.0); MEAN CORPUSCULAR HGB CONC 33.5 g/dl (32.0-37.0); NUCLEATED RED BLOOD CELLS% 2.9 /100WBC (0.0-0.0); PLATELET COUNT 77 10^3/UL (140-415); POSITIVE DIFF @See below; RED CELL DISTRIBUTION WIDTH 19.4 % (11.5-14.5)
[2018-01-13 05:36] LABS: WHITE BLOOD COUNT 21.2 10^3/ul (4.8-10.8)
[2018-01-13 05:38] LABS: ADD MAN DIFF? YES
[2018-01-13 06:08] LABS: INR 1.38; PROTIME 17.2 Sec (11.9-14.9); PT RATIO 1.3
[2018-01-13 06:27] LABS: ANION GAP 14 (5-13); BLOOD UREA NITROGEN 36 mg/dl (7-20); CALCIUM 8.2 mg/dl (8.4-10.2); CARBON DIOXIDE 22 mmol/L (21-31); CHLORIDE 99 mmol/L (97-110); GLUCOSE 102 mg/dl (70-220); MAGNESIUM 1.7 mg/dl (1.7-2.5); PHOSPHORUS 3.1 mg/dl (2.5-4.9); POTASSIUM 3.9 mmol/L (3.5-5.1); SODIUM 135 mmol/L (135-144)
[2018-01-13 06:33] LABS: Estimated GFR 16 mL/min (>60)
[2018-01-13 06:37] LABS: CREATININE 3.79 mg/dl (0.61-1.24)
[2018-01-13 07:14] LABS: ANISOCYTOSIS 2+ (0-0); BAND NEUTROPHILS #M 5.3 10^3/ul (0.0-0.6); BAND NEUTROPHILS % (M) 25 % (0-4); BURR CELLS 1+ (0-0); ERYTHROBLAST% (NRBC) (M) 7 % (0-0); HYPOCHROMASIA 1+ (0-0); LYMPHOCYTES #M 1.9 10^3/ul (0.8-2.9); LYMPHOCYTES % (M) 9 % (15-51); METAMYELOCYTES #M 0.2 10^3/ul (0.0-0.0); METAMYELOCYTES %M 1 % (0-0); PLATELET ESTIMATE DECREASED; POIKILOCYTOSIS 1+ (0-0); POLYCHROMASIA 1+ (0-0); SEG NEUT #M 14.9 10^3/ul (1.6-7.5); SEGMENTED NEUTROPHILS (M) % 65 % (39-77); SMUDGE%M 6 % (0-0); TARGET CELLS 1+ (0-0)
[2018-01-13] MEDS: LORAZEPAM 2 MG INJ IV ×2 (07:44→15:07)
[2018-01-13] MEDS: BALSAM PERU/CASTOR OIL 60 GM TUBE TOP ×2 (09:00→21:00)
[2018-01-13] MEDS: NYSTATIN 30 GM POWDER BTL TOP ×2 (09:00→21:00)
[2018-01-13] MEDS: FLUCONAZOLE 100 MG TAB PO (09:00)
[2018-01-13 09:37] LABS: ALANINE AMINOTRANSFERASE 70 IU/L (13-69); ALBUMIN 2.9 g/dl (3.3-4.9); ALKALINE PHOSPHATASE 203 IU/L (42-121); ASPARTATE AMINO TRANSFERASE 77 IU/L (15-46); BILIRUBIN,INDIRECT 2.3 mg/dl (0-1.1); BILIRUBIN,TOTAL 14.6 mg/dl (0.2-1.3); TOTAL PROTEIN 5.8 g/dl (6.1-8.1)
[2018-01-13] MEDS: ALTEPLASE (CATHFLO) 2 MG INJ CATHETER (13:50)
[2018-01-13] MEDS: ERTAPENEM SODIUM 0.5 GM in SOD CHLORIDE 0.9% 100 ML IVPB (17:05)
[2018-01-14] MEDS: DEXMEDETOMIDINE HCL 200 MCG in SOD CHLORIDE 0.9% 48 ML IV ×2 (02:00→05:36)
[2018-01-14 05:23] LABS: ABNORMAL IP MESSAGE 1; HEMATOCRIT 24.4 % (42.0-52.0); HEMOGLOBIN 8.3 g/dl (14.0-18.0); MEAN CORPUSCULAR HEMOGLOBIN 31.7 pg (29.0-33.0); MEAN CORPUSCULAR VOLUME 93.1 fl (82.0-101.0); NUCLEATED RED BLOOD CELLS% 2.1 /100WBC (0.0-0.0); PLATELET COUNT 81 10^3/UL (140-415); POSITIVE DIFF @See below; RED BLOOD COUNT 2.62 10^6/ul (4.70-6.10); RED CELL DISTRIBUTION WIDTH 19.6 % (11.5-14.5)
[2018-01-14 05:23] LABS: WHITE BLOOD COUNT 19.8 10^3/ul (4.8-10.8)
[2018-01-14 05:28] LABS: ADD MAN DIFF? YES
[2018-01-14] MEDS: PANTOPRAZOLE 40 MG INJ IV (05:37)
[2018-01-14 05:48] LABS: ANION GAP 8 (5-13); BLOOD UREA NITROGEN 23 mg/dl (7-20); CALCIUM 8.3 mg/dl (8.4-10.2); CARBON DIOXIDE 29 mmol/L (21-31); CHLORIDE 104 mmol/L (97-110); CREATININE 3.01 mg/dl (0.61-1.24); Estimated GFR 21 mL/min (>60); GLUCOSE 74 mg/dl (70-220); PHOSPHORUS 2.8 mg/dl (2.5-4.9); POTASSIUM 4.3 mmol/L (3.5-5.1); SODIUM 141 mmol/L (135-144)
[2018-01-14] MEDS: DEXTROSE 50% 50 ML SYRINGE IV (05:52)
[2018-01-14] MEDS: ACCU-CHEK XX ×2 (05:55)
[2018-01-14 07:47] LABS: ANISOCYTOSIS 2+ (0-0); BAND NEUTROPHILS #M 1.9 10^3/ul (0.0-0.6); BAND NEUTROPHILS % (M) 10 % (0-4); BASOPHIL #M 0.5 10^3/ul (0.0-0.0); BASOPHILS % (M) 3 % (0-2); BURR CELLS 1+ (0-0); ERYTHROBLAST% (NRBC) (M) 3 % (0-0); LYMPHOCYTES #M 1.5 10^3/ul (0.8-2.9); LYMPHOCYTES % (M) 8 % (15-51); MONOCYTE #M 0.3 10^3/ul (0.3-0.9); MONOCYTES % (M) 2 % (0-11); PLATELET ESTIMATE DECREASED; POIKILOCYTOSIS 2+ (0-0); POLYCHROMASIA 1+ (0-0); REACTIVE LYMPHOCYTES #M 0.1 10^3/ul (0.0-0.0); REACTIVE LYMPHOCYTES% (M) 1 % (0-0); SEG NEUT #M 15.6 10^3/ul (1.6-7.5); SEGMENTED NEUTROPHILS (M) % 77 % (39-77); SMUDGE%M 2 % (0-0); TEAR DROP CELLS 2+ (0-0)
[2018-01-14] MEDS: LORAZEPAM 2 MG INJ IV (08:18)
[2018-01-14] MEDS: BALSAM PERU/CASTOR OIL 60 GM TUBE TOP (08:18)
[2018-01-14] MEDS: morphine (DRIP) 100 MG/100 ML 100 ML IV (11:29)
[2018-01-14] MEDS: LORAZEPAM 2 MG INJ IM (16:43)
[2018-01-14] MEDS ORDERED: LORAZEPAM 2 MG INJ IV (18:00)
== END 2018-01-15 10:05 | disposition expired | DRG 870 ==
LOC: MS1 01-15 07:30 → E/R 20:45 → ICU 22:11
PROVIDERS: Internal Medicine
PROC: 5A1955Z Respiratory Ventilation, Greater than 96 Consecutive Hours (ICD-10-PCS; principal; 2018-01-02)
PROC: 0BH17EZ Insertion of Endotracheal Airway into Trachea, Via Natural or Artificial Opening (ICD-10-PCS; 2018-01-02)
PROC: 30233K1 Transfusion of Nonautologous Frozen Plasma into Peripheral Vein, Percutaneous Approach (ICD-10-PCS; 2018-01-04)
PROC: 30233N1 Transfusion of Nonautologous Red Blood Cells into Peripheral Vein, Percutaneous Approach (ICD-10-PCS; 2018-01-04)
PROC: 30233R1 Transfusion of Nonautologous Platelets into Peripheral Vein, Percutaneous Approach (ICD-10-PCS; 2018-01-04)
PROC: 06HN33Z Insertion of Infusion Device into Left Femoral Vein, Percutaneous Approach (ICD-10-PCS; 2018-01-07)
DX: A41.9 Sepsis, unspecified organism (principal); R65.21 Severe sepsis with septic shock; G92 Toxic encephalopathy; J96.00 Acute respiratory failure, unspecified whether with hypoxia or hypercapnia; D65 Disseminated intravascular coagulation [defibrination syndrome]; E11.10 Type 2 diabetes mellitus with ketoacidosis without coma; N17.0 Acute kidney failure with tubular necrosis; K72.00 Acute and subacute hepatic failure without coma; I21.A1 Myocardial infarction type 2; J69.0 Pneumonitis due to inhalation of food and vomit; D61.818 Other pancytopenia; M62.82 Rhabdomyolysis; K92.1 Melena; E87.4 Mixed disorder of acid-base balance; I47.1 Supraventricular tachycardia; E87.2 Acidosis; N39.0 Urinary tract infection, site not specified; J90 Pleural effusion, not elsewhere classified; R57.0 Cardiogenic shock; F10.229 Alcohol dependence with intoxication, unspecified; Y90.5 Blood alcohol level of 100-119 mg/100 ml; R91.1 Solitary pulmonary nodule; I27.20 Pulmonary hypertension, unspecified; E87.6 Hypokalemia; E83.51 Hypocalcemia; N18.9 Chronic kidney disease, unspecified; T68.XXXA Hypothermia, initial encounter; I46.9 Cardiac arrest, cause unspecified; R34 Anuria and oliguria; K70.30 Alcoholic cirrhosis of liver without ascites; E83.9 Disorder of mineral metabolism, unspecified; E11.649 Type 2 diabetes mellitus with hypoglycemia without coma; I48.0 Paroxysmal atrial fibrillation; E11.22 Type 2 diabetes mellitus with diabetic chronic kidney disease; B95.5 Unspecified streptococcus as the cause of diseases classified elsewhere; R60.1 Generalized edema; D63.1 Anemia in chronic kidney disease; Z86.74 Personal history of sudden cardiac arrest; Z66 Do not resuscitate; R13.10 Dysphagia, unspecified; K70.0 Alcoholic fatty liver; R19.7 Diarrhea, unspecified
CPT/HCPCS: 31500; 36415; 36430; 36569; 36600; 70450; 71045; 74018; 76700; 76705; 76775; 76937; 80048; 80053; 80076; 80162; 80202; 80307; 81001; 81003; 82270; 82330; 82550; 82553; 82607; 82746; 82803; 82962; 83010; 83036; 83605; 83615; 83735; 84100; 84155; 84300; 84484; 85014; 85018; 85025; 85045; 85049; 85335; 85362; 85378; 85384; 85610; 85670; 85730; 86038; 86255; 86644; 86706; 86709; 86803; 86850; 86900; 86901; 86920; 87040; 87045; 87070; 87075; 87081; 87086; 87340; 90935; 92950; 93005; 93306; 94002; 94003; 94770; 99291-25; J3430